=== PATIENT | female | born 1945 | race Caucasian/White ===

== ENCOUNTER 2023-04-29 15:49 | Emergency (ER) | payer OTHER, SELFPAY ==
[2023-04-29 15:54] VITALS: BP 198/102; PULSE 78; RESP 16; TEMP 36.4; O2SAT 98; BMI 28.3
--- NOTE | 2023-04-29 15:59 | CT_ITS ---
The [address] [address] Patient Name: KATRINA FISH MRN: [id number] date: 1945 Sex: F Assigned Patient Location: ER Current Patient Location: ER Accession/Order Number: [id number] Exam Date: 04/29/2023 16:46 Report Date: 04/29/2023 17:10 At the request of: CRISTIANO ROJAS Procedure: CT head/brain wo con EXAM: CT scan of the head and cervical spine without contrast. Dose reduction technique used: Automated exposure control and/or adjustment of the mA and/or kV according to patient size and/or use of iterative reconstruction technique. REASON FOR EXAM: fall COMPARISON: None FINDINGS: HEAD: No intracranial hemorrhage, mass effect, midline shift, fractures or evidence of acute ischemic infarct. No hydrocephalus. Mild small vessel gliosis. Paranasal sinuses and mastoid air cells are clear. Small right parietal scalp hematoma. C-SPINE: No fractures, dislocations or acute malalignment of the cervical spine. Cervical spine degenerative changes with multilevel bilateral mild and moderate neural foraminal stenoses. Multilevel spinal canal stenoses that are mild or moderate. Remainder unremarkable. CT/CT head/brain wo con IMPRESSION: No acute intracranial or cervical spine abnormalities. Electronically authenticated by: NIESHA ARZATE Date: 04/29/2023 17:10
--- NOTE | 2023-04-29 15:59 | CT_ITS ---
The [address] [address] Patient Name: KATRINA FISH MRN: [id number] date: 1945 Sex: F Assigned Patient Location: ER Current Patient Location: ER Accession/Order Number: [id number] Exam Date: 04/29/2023 16:46 Report Date: 04/29/2023 17:10 At the request of: CRISTIANO ROJAS Procedure: CT cervical spine wo con EXAM: CT scan of the head and cervical spine without contrast. Dose reduction technique used: Automated exposure control and/or adjustment of the mA and/or kV according to patient size and/or use of iterative reconstruction technique. REASON FOR EXAM: fall COMPARISON: None FINDINGS: HEAD: No intracranial hemorrhage, mass effect, midline shift, fractures or evidence of acute ischemic infarct. No hydrocephalus. Mild small vessel gliosis. Paranasal sinuses and mastoid air cells are clear. Small right parietal scalp hematoma. C-SPINE: No fractures, dislocations or acute malalignment of the cervical spine. Cervical spine degenerative changes with multilevel bilateral mild and moderate neural foraminal stenoses. Multilevel spinal canal stenoses that are mild or moderate. Remainder unremarkable. CT/CT cervical spine wo con IMPRESSION: No acute intracranial or cervical spine abnormalities. Electronically authenticated by: NIESHA ARZATE Date: 04/29/2023 17:10
--- NOTE | 2023-04-29 16:18 | ED.FALL1 ---
HPI - Fall General Chief Complaint: Fall Stated Complaint: FALL Time Seen by Provider: 04/29/23 15:59 Source: patient Mode of arrival: walk-in Limitations: no limitations History of Present Illness HPI Narrative: Patient is a 77-year-old female presents to the emergency department for evaluation of a head injury that occurred at home just prior to arrival. Patient states she tripped over her feet and fell backward. She does not know if she landed on her bottom first but states she did hit the back of her head. She is now having minimal pain in the neck and soreness to the back of the scalp. She did not sustain any lacerations. She denies loss of consciousness, visual changes, peripheral paresthesias. She is able to ambulate. No pain to the extremities, back.No nausea or vomiting. She is noted to be hypertensive at initial interview, her PCP is aware of fluctuations in her blood pressure and is currently trying to manage this for her. Related Data Previous Rx's Medication Instructions Recorded ondansetron 4 mg disintegrating 4 mg PO Q6H PRN nausea and 04/29/23 tablet vomiting #12 tabs Allergies Allergy/AdvReac Type Severity Reaction Status Date / Time No Known Drug Allergies Allergy Verified 04/29/23 15:57 Review of Systems ROS Constitutional Denies: fever or chills Eyes Denies: change in vision Ears, nose, mouth, and throat Denies: throat pain Cardiovascular Denies: chest pain Respiratory Denies: shortness of breath or cough Gastrointestinal Denies: nausea or vomiting Musculoskeletal Reports: neck pain; Denies: back pain, extremity pain, extremity swelling, joint pain or limited range of motion Neurological Reports: headache; Denies: numbness in extremities, weakness in extremities, lack of coordination, dizziness or vertigo Endocrine Denies: excessive urination Hematologic/Lymphatic Denies: easy bruising or easy bleeding PFSH PFSH Social History Smoking status: Heavy tobacco smoker Exam Narrative Exam Narrative: Gen.: Awake, alert, in no distress Head: Normocephalic, Mild swelling noted to the occiput with no abrasion or laceration ENT: Moist mucous membranes; No bony point tenderness of the midline cervical spine Respiratory: No respiratory distress, lungs clear bilaterally; No chest wall tenderness Cardio: Regular rate and rhythm Back: No bony tenderness of the T-spine or L-spine, pelvis is stable and hips are nontender Extremities: Moves extremities equally, no injuries noted; Left hand is nontender with a small area of ecchymosis to the dorsum of the hand Psych: Normal mood and affect Neuro: No focal neuro deficit Skin: Warm, dry, intact Constitutional Vital Signs, click to edit/add: Last Vital Signs Temp 97.6 F 04/29/23 15:54 Pulse 78 04/29/23 15:54 Resp 16 04/29/23 15:54 BP 198/102 H 04/29/23 15:54 Pulse Ox 98 04/29/23 15:54 O2 Del Method Room Air 04/29/23 15:54 Course Vital Signs Vital signs: Vital Signs Temperature 97.6 F 04/29/23 15:54 Pulse Rate 78 04/29/23 15:54 Respiratory Rate 16 04/29/23 15:54 Blood Pressure 198/102 H 04/29/23 15:54 Pulse Oximetry 98 04/29/23 15:54 Oxygen Delivery Method Room Air 04/29/23 15:54 Temperature 97.6 F 04/29/23 15:54 Pulse Rate 78 04/29/23 15:54 Respiratory Rate 16 04/29/23 15:54 Blood Pressure 198/102 H 04/29/23 15:54 Pulse Oximetry 98 04/29/23 15:54 Oxygen Delivery Method Room Air 04/29/23 15:54 MDM - Fall MDM Narrative Medical decision making narrative: CTs of the head, C-spine with no evidence of acute abnormalities. Patient with no other extremity injuries. She is discharged with close head injury instructions. Tylenol as needed. Follow-up with PCP and return to the ER if symptoms change or worsen. Medical Records Attestation: I reviewed the patient's medical records. Imaging Data CT scan - head: Attestation: I have reviewed the pertinent imaging results. Radiologist's impression: ITS Impressions Cervical Spine CT 04/29/23 15:59 IMPRESSION: No acute intracranial or cervical spine abnormalities. Electronically authenticated by: NIESHA ARZATE Date: 04/29/2023 17:[address] 04/29/23 15:59 IMPRESSION: No acute intracranial or cervical spine abnormalities. Electronically authenticated by: NIESHA ARZATE Date: 04/29/2023 17:10 Discharge Plan Discharge Chief Complaint: Fall Clinical Impression: Closed head injury, Fall Patient Disposition: Home, Self-Care Time of Disposition Decision: 17:22 Condition: Good Prescriptions / Home Meds: New ondansetron 4 mg tablet,disintegrating 4 mg PO Q6H PRN (Reason: nausea and vomiting) Qty: 12 0RF Instructions: Head Injury (ED), Fall Prevention (ED) Stand Alone Forms: Portal Instructions Referrals: ROCIO HUGGINS [Primary Care Provider] - 1 week
[2023-04-29] MEDS: ACETAMINOPHEN 325 MG TABLET 650 MG PO (16:25)
== END 2023-04-29 17:32 | disposition home or self-care (01) ==
PROVIDERS: Emergency Provider Emergency Medicine; PCP Internal Medicine
DX: S09.8XXA Other specified injuries of head, initial encounter (principal); W01.10XA Fall on same level from slipping, tripping and stumbling with subsequent striking against unspecified object, initial encounter; F17.210 Nicotine dependence, cigarettes, uncomplicated
CPT/HCPCS: 70450; 72125; 99284

== ENCOUNTER 2024-05-24 10:38 | Outpatient (OUT) | payer OTHER, SELFPAY ==
--- OUTSIDE RECORDS SUMMARY | 2024-05-24 10:49 | XMS_ITS | CCD ---
Author Organization [facility] [employer] Care Team Providers Care Skiff Operator Name Role Phone Trenteugenia Adam Unavailable Luh Valery Unavailable Chasity Gilliland Unavailable ALDEN, DR BORDEN Primary Care Unavailable ROSMERY LOPEZ Admitting Unavailable ROSMERY LOPEZ Attending Unavailable ROSMERY LOPEZ Consulting Unavailable ALDEN, DR BORDEN Admitting Unavailable VALONE, DR BORDEN Attending Unavailable VALONE, DR BORDEN Primary Care Unavailable VALONE, DR BORDEN Consulting Unavailable West, DR Agudelo Consulting Unavailable VALONE, DR BORDEN Primary Care Unavailable LALITHA PHILLIPS Admitting Unavailable LALITHA PHILLIPS Attending Unavailable LALITHA PHILLIPS Consulting Unavailable JOSSY SYLVESTER Attending Unavailable DINO ABERNATHY Primary Care Unavailable Dino Abernathy MD Unavailable Dino Abernathy MD Primary Care Provider Dino Abernathy MD Primary Care Provider NOE JASSO Attending Unavailable NOE JASSO Attending Unavailable DINO ABERNATHY Referring Unavailable DINO ABERNATHY Attending Unavailable ALMA GARNER Attending Unavailable DINO ABERNATHY Attending Unavailable DINO ABERNATHY Attending Unavailable DINO ABERNATHY Attending Unavailable DINO ABERNATHY Attending Unavailable DINO ABERNATHY Attending Unavailable DINO ABERNATHY Attending Unavailable Allergies Allergy Classification Reported Allergen(s) Allergy Type Date of Onset Reaction(s) Facility (13 sources) cefdinir; Translations: [Omnicef] Drug Allergy 2 severe Hives [facility] Repository (20 sources) prednisoLONE; Translations: [PREDNISOLONE] Drug Allergy 3 flushing-high doses [facility] Repository (12 sources) Novocain Drug allergy [facility] Other (20 sources) cefdinir; Translations: [CEFDINIR] Drug Allergy 3 [facility] Repository (2 sources) Hmg-Coa Reductase Inhibitors (Statins); Translations: [ZOIWDWF-OMG-LJ A REDUCTASE INHIBITORS] Propensity to adverse reactions to drug (disorder) 3 [facility] Repository (20 sources) Procaine; Translations: [PROCAINE] Drug Allergy 3 [facility] Repository (20 sources) HMG-CoA reductase inhibitor Drug Allergy 3 [facility] Medications Current Medications Medication Drug Class(es) Dates Sig (Normalized) Sig (Original) amLODIPine 5 mg oral tablet (6 sources) Dihydropyridine Calcium Channel Nikki Start: 01-09-2024 take 1 tablet by mouth in the morning amLODIPine (Norvasc) 5 MG tablet Take 5 mg by mouth in the morning. 01/09/2024 Active calcium citrate 950 mg oral tablet (20 sources) take 1 tablet by mouth in the morning calcium citrate (Calcitrate) 950 (200 Ca) MG tablet Take 950 mg by mouth in the morning. Active Caltrate 600+D 600-400 MG-UNIT (12 sources) take 1 tablet by mouth once daily at mealtime Caltrate 600+D 600-400 MG-UNIT 1 tablet with food Orally Once a day Active donepezil hydrochloride 5 mg oral tablet (18 sources) Start: 03-26-2024 End: 06-24-2024 take 1 tablet by mouth at bedtime donepezil (Aricept) 10 MG tablet Indications: Mild cognitive impairment , Mild dementia without behavioral disturbance, psychotic disturbance, mood disturbance, or anxiety, unspecified dementia type (CMS/HCC) Take 1 tablet (10 mg) by mouth at bedtime 30 tablet 2 03/26/2024 05/13/2024 Discontinued Start: 01-02-2024 End: 01-22-2025 take 1 tablet by mouth in the morning donepezil (Aricept) 5 MG tablet Indications: Mild cognitive impairment , Mild dementia without behavioral disturbance, psychotic disturbance, mood disturbance, or anxiety, unspecified dementia type (CMS/HCC) Take 1 tablet (5 mg) by mouth in the morning and 1 tablet (5 mg) before bedtime. 60 tablet 2 05/13/2024 08/11/2024 Active hydroCHLOROthiazide 25 mg / olmesartan medoxomil 40 mg oral tablet (20 sources) Thiazide Diuretic, Angiotensin 2 Receptor Nikki Start: 04-28-2023 End: 04-27-2024 take 1 tablet by mouth in the morning olmesartan-hydroCHLOROthiazide (BENIcar HCT) 40-25 MG tablet Indications: Primary hypertension (CMS/HCC) Take 1 tablet by mouth in the morning. 100 tablet 3 08/28/2023 Active krill oil 1000 mg oral capsule (12 sources) Krill Oil 1000 M G Orally Active loratadine 10 mg oral tablet (20 sources) Start: 01-31-2023 End: 01-31-2024 take 1 tablet by mouth in the morning loratadine (Claritin) 10 MG tablet Indications: Non-seasonal allergic rhinitis, unspecified trigger Take 1 tablet (10 mg) by mouth in the morning. 90 tablet 3 01/31/2023 Active take 1 tablet by mouth once lisa y Loratadine 10 MG 1 tablet Orally Once a day Active montelukast 10 mg oral tablet (20 sources) Leukotriene Receptor Antagonist Start: 02-04-2023 End: 03-29-2024 take 1 tablet by mouth at bedtime montelukast (Singulair) 10 MG tablet Indications: Non-seasonal allergic rhinitis, unspecified trigger TAKE 1 TABLET BY MOUTH AT BEDTIME 100 tablet 3 03/29/2024 Active multivitamin (Theragran) tablet (20 sources) take 1 tablet by mouth in the morning multivitamin (Theragran) tablet Take 1 tablet by mouth in the morning. Active take 1 tablet by mouth in the mo rning multivitamin (Theragran) tablet Take 1 tablet by mouth in the morning. 0 Active One Daily For Women (12 sources) One Daily For Wo men Orally Active rivaroxaban 15 mg oral tablet (8 sources) Factor Xa Inhibitor take 1 tablet by kirsty th every twenty-four hours Xarelto 15 MG 1 tablet with food Orally Once a day Active Xarelto Active rosuvastatin calcium 10 mg oral tablet (20 sources) HMG-CoA Reductase Inhibitor Start: 02-04-2023 End: 03-29-2024 take 1 tablet by mouth at bedtime rosuvastatin (Crestor) 10 MG tablet Indications: Pure hypercholesterolemia (CMS/HCC) TAKE 1 TABLET BY MOUTH AT BEDTIME 100 tablet 3 03/29/2024 Active therapeutic multivitamin (THERAGRAN) tablet (1 source) take 1 tablet by mouth in the morning therapeutic multivitamin (THERAGRAN) tablet Take 1 tablet by mouth in the morning. 0 Active thiamine 100 mg oral tablet (8 sources) Start: 03-26-2024 End: 08-11-2024 take 1 tablet by mouth once daily thiamine (Vitamin B-1) 100 MG tablet Indications: Mild cognitive impairment , Mild dementia without behavioral disturbance, psychotic disturbance, mood disturbance, or anxiety, unspecified dementia type (CMS/HCC) Take 1 tablet (100 mg) by mouth Daily 30 tablet 2 05/13/2024 08/11/2024 Active 24 hr verapamil hydrochloride 360 mg extended release oral capsule (19 sources) Calcium Channel Nikki take 2 capsules by mouth every twenty-four hours Verelan PM 200 MG 2 capsule Orally Once a day Not-Taking take 1 capsule by mouth once cristina ly Verapamil HCl 360 MG 1 capsule Orally Once a day Active take 2 capsules by m outh every twenty-four hours Completed/Discontinued Medications Medication Drug Class(es) Dates Sig (Normalized) Sig (Original) Aspir-81 81 MG (12 sources) take 1 tablet by kirsty th every other day Aspir-81 81 MG 1 tablet Orally Every other day Not-Taking take 1 tablet by mouth every oth er day Aspir-81 81 MG 1 tablet Orally Every other day Active diazePAM 5 mg oral tablet (20 sources) Benzodiazepine Start: 12-28-2020 take 1 tablet by mouth every hour, then take 2 tablets by mouth once daily Valium 5 MG 1 tablet 1 HOUR APPT BRING 2 TO OFFICE Orally Once a day Dec, Not-Taking hydrocortisone 10 mg/ml / neomycin 3.5 mg/ml / polymyxin b [id number] unt/ml otic suspension (8 sources) Aminoglycoside Antibacterial, Polymyxin-class Antibacterial, Corticosteroid Neomycin-Polymyxi n-HC [id number] 3 drops left ear Three times a day for 7 days Not-Taking olmesartan medoxomil 40 mg oral tablet (4 sources) Angiotensin 2 Receptor Nikki Start: 01-31-2023 End: 01-31-2024 take 1 tablet by mouth in the morning olmesartan (BENIcar) 40 MG tablet Indications: Primary hypertension (CMS/HCC) Take 1 tablet (40 mg) by mouth in the morning. 90 tablet 3 01/31/2023 04/28/2023 Discontinued (Dose adjustment) pravastatin sodium 20 mg oral tablet (12 sources) HMG-CoA Reductase Inhibitor take 1 tablet by mouth every twenty-four hours Pravastatin Sodium 20 MG 1 tablet Orally Once a day Not-Taking raNITIdine 300 mg oral tablet (12 sources) Histamine-2 Receptor Antagonist take 1 capsule by mouth once daily at bedtime Ranitidine HCl 300 MG 1 capsule at bedtime Orally Once a day Not-Taking Problems Active Problems Problem Classification Problem Date Documented Date Episodic/Chronic Administrative/social admission (2 sources) Patient encounter status; Translations: [Other specified counseling] 12-10-2023 Episodic Blindness and vision defects (5 sources) Visual disturbance; Translations: [Unspecified visual disturbance] Onset: 04-14-2024 04-14-2024 Episodic Cardiac dysrhythmias (5 sources) Palpitations; Translations: [Palpitations] Onset: 04-14-2024 04-14-2024 Episodic Chronic obstructive pulmonary disease and bronchiectasis (20 sources) Panacinar emphysema; 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] Onset: 12-18-2022 12-18-2022 Chronic Conditions associated with dizziness or vertigo (5 sources) Vertigo; Translations: [Dizziness and giddiness] Onset: 04-14-2024 04-14-2024 Episodic Delirium, dementia, and amnestic and other cognitive disorders (17 sources) Dementia; Translations: [Mild dementia without behavioral disturbance, psychotic disturbance, mood disturbance, or anxiety, unspecified dementia type (CMS/HCC)] Onset: 12-26-2023 12-26-2023 Chronic Disorders of lipid metabolism (20 sources) Pure hypercholesterolemia; Translations: [Pure hypercholesterolemia, unspecified] Onset: 01-31-2023 01-31-2023 Chronic Essential hypertension (20 sources) Essential hypertension; Translations: [Essential (primary) hypertension] Onset: 12-18-2022 12-18-2022 Chronic Immunizations and screening for infectious disease (6 sources) Contact with and (suspected) exposure to other viral communicable diseases; Translations: [Needs influenza immunization] Onset: 11-12-2021 Resolved: 11-19-2021 Episodic Other diseases of kidney and ureters (4 sources) Abnormal renal function; Translations: [Disorder of kidney and ureter, unspecified] 01-02-2024 Episodic Other diseases of veins and lymphatics (12 sources) Peripheral venous insufficiency; Translations: [Venous insufficiency (chronic) (peripheral)] Episodic Other hereditary and degenerative nervous system conditions (19 sources) Impaired cognition; Translations: [Mild cognitive impairment, so stated] Onset: 12-26-2023 12-26-2023 Chronic Other nervous system disorders (4 sources) Impaired cognition 01-02-2024 Episodic Other skin disorders (1 source) Epidermal cyst; Translations: [Epidermal cyst] Onset: 04-09-2023 Episodic Other upper respiratory disease (20 sources) Allergic rhinitis; Translations: [Other allergic rhinitis] Onset: 01-31-2023 01-31-2023 Chronic Peripheral and visceral atherosclerosis (19 sources) Atherosclerosis of aorta; Translations: [Atherosclerosis of aorta] Onset: 05-12-2023 05-12-2023 Chronic Residual codes; unclassified (5 sources) Transient alteration of awareness; Translations: [Transient alteration of awareness] Onset: 04-14-2024 04-14-2024 Episodic Substance-related disorders (20 sources) Smoker; Translations: [Nicotine dependence, unspecified, uncomplicated] Onset: 04-20-2021 01-31-2023 Chronic Unclassified (1 source) Cyst Onset: 04-09-2023 Varicose veins of lower extremity (20 sources) Pain co-occurrent and due to varicose veins of bilateral legs; Translations: [Varicose veins of bilateral lower extremities with pain] Onset: 04-10-2021 Resolved: 05-15-2021 Episodic Past or Other Problems Problem Classification Problem Date Documented Da te Episodic/Chronic Abdominal pain (3 sources) Unspecified abdominal pain; Translations: [UNSPECIFIED ABDOMINAL PAIN] Onset: 04-20-2021 Episodic Genitourinary symptoms and ill-defined conditions (5 sources) Personal history of urinary (tract) infections; Translations: [Hematuria, unspecified] Onset: 04-18-2021 Episodic Other aftercare (1 source) 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; Translations: [OTH SNF CURRENT DRUG THERAPY] Onset: 04-23-2021 Episodic Other aftercare (1 source) centrifugal separator (current) use of anticoagulants; Translations: [SUPERVISOR CIGAR PROCESSING CURRNT USE ANTICOAGULANTS] Onset: 04-23-2021 Episodic Other ear and sense organ disorders (1 source) Unspecified acute noninfective otitis externa, left ear Onset: 04-30-2021 Resolved: 04-30-2021 Episodic Other gastrointestinal disorders (1 source) Constipation, unspecified; Translations: [CONSTIPATION UNSPECIFIED] Onset: 04-23-2021 Episodic Other skin disorders (1 source) Epidermoid cyst; Translations: [Epidermal cyst] 04-09-2023 Episodic Residual codes; unclassified (1 source) Acquired absence of both cervix and uterus; Translations: [ACQUIRED ABSENCE BOTH CERVIX AND UTERUS] Onset: 04-20-2021 Episodic Urinary tract infections (1 source) Urinary tract infection, site not specified; Translations: [UTI SITE NOT SPECIFIED] Onset: 04-20-2021 Episodic Viral infection (1 source) COVID-19 Onset: 11-19-2021 Resolved: 11-19-2021 Results Test Name Value Interpretation Reference Range Facility BASIC METABOLIC PANELon 10 Calcium [Mass/Vol] 10.0 mg/dL Normal 8.6-10.4 [facility] Comment on above: Performed By: #### 1 0165 #### [facility] [place] [address] Bottle Washer: Pierce Patterson MD Chloride [Moles/Vol] 106 mmol/L Normal 98-110 [facility] Comment on above: Performed By: #### 1 0165 #### [facility] [place] [address] Bottle Washer: Pierce Patterson MD CO2 [Moles/Vol] 29 mmol/L Normal 20-32 [facility] Comment on above: Performed By: #### 1 0165 #### [facility] [place] [address] Bottle Washer: Pierce Patterson MD Creatinine [Mass/Vol] 1.17 mg/dL High 0.60-1.00 [facility] Comment on above: Performed By: #### 1 0165 #### [facility] [place] [address] Bottle Washer: Pierce Patterson MD GFR/1.73 sq M.predicted among non-blacks MDRD (S/P/Bld) [Vol rate/Area] 48 mL/min/{1.73_m2} Low > OR = 60 [facility] Comment on above: Performed By: #### 1 0165 #### [facility] [place] [address] Bottle Washer: Pierce Patterson MD Glucose [Mass/Vol] 98 mg/dL Normal 65-99 [facility] Comment on above: Result Comment: Fasting reference interval Performed By: #### 1 0165 #### [facility] [place] [address] Bottle Washer: Pierce Patterson MD Potassium [Moles/Vol] 3.9 mmol/L Normal 3.5-5.3 [facility] Comment on above: Performed By: #### 1 0165 #### [facility] [place] [address] Bottle Washer: Pierce Patterson MD Sodium [Moles/Vol] 143 mmol/L Normal 135-146 [facility] Comment on above: Performed By: #### 1 0165 #### [facility] [place] [address] Bottle Washer: Pierce Patterson MD Urea nitrogen [Mass/Vol] 11 mg/dL Normal 7-25 [facility] Comment on above: Performed By: #### 1 0165 #### [facility] [place] [address] Bottle Washer: Pierce Patterson MD Urea nitrogen/Creatinin e [Mass ratio] 9 mg/mg Normal 6-22 [facility] Comment on above: Performed By: #### 1 0165 #### [facility] [place] [address] Bottle Washer: Pierce Patterson MD MG MAMM SCREEN 3D NAE CADon 03-14-2022 MG MAMM SCREEN 3D NAE CAD Patient: STEPHANIE FISH Exam Date: 03/14/2022 : 1945 Gender:F Ordering : DR MICHI RUANO D.O. Admission #: [id number] Family : Order #: [id number] CLICK HERE TO VIEW EXAM RADIOLOGY REPORT PROCEDURE: MAMMOGRAM SCREENING 3D BILATERAL CAD COMPARISON: MG MAMM SCREEN NAE W CAD, 03/07/2020. MG MAMM SCREEN 3D NAE CAD, 03/13/2021. INDICATIONS: Screening mammography Calculator Name NCI Breast Cancer Risk Assessment Tool 5 Year Breast Cancer Risk 1.60% Lifetime Breast Cancer Risk 3.20% Personal Breast Cancer No Personal Ovarian Cancer No Treatments None Family Cancers Mother with colon cancer at age 35. LOCATION: [facility] BREAST COMPOSITION: Heterogeneously dense,which may obscure small masses. FINDINGS: DIAGNOSTIC CATEGORY 1--NEGATIVE. NO CHANGE FROM COMPARISON ASSESSMENT. Scattered benign-appearing calcifications are present. Scattered benign-appearing lymph nodes are present. RIGHT BREAST: No significant suspicious finding. LEFT BREAST: No significant suspicious finding. RECOMMENDATIONS: ROUTINE MAMMOGRAM AND CLINICAL EVALUATION IN 12 MONTHS. PLEASE NOTE: A NORMAL MAMMOGRAM DOES NOT EXCLUDE THE POSSIBILITY OF BREAST CANCER. A CLINICALLY SUSPICIOUS PALPABLE LUMP SHOULD BE BIOPSIED. Dictated by: Magnus Brasher MD on 03/14/2022 at 11:52 Approved by: Magnus Brasher MD on 03/14/2022 at 11:53 Normal [facility] COVID Quick Testingon 2021 Result Positive [facility] Other SARS-CoV-2 (COVID-19) RNA NA A+probe Ql (Resp)on 11-12-2021 SARS-CoV-2 (COVID-19) RNA LEE+probe Ql (Unsp spec) Negative [facility] Other US venous duplex LE LTon US venous duplex LE LT [facility] [place] [address] Ultrasound Report Signed Patient: Stephanie Fish MR#: [id number] 63 : 1945 Acct:[id number] Age/Sex: 75 / F ADM Date: 05/15/21 Loc: Room: Type: [facility] Attending Dr: Adam Blair MD Ordering Provider: Adam Blair MD Date of Service: 05/15/21 US/US venous duplex LE LT: [id number] Copies to: Adam Blair MD Left lower extremity venous duplex examination Indication for study: Chronic venous insufficiency with painful varicose veins status post venaseal closure left greater saphenous vein PROCEDURE: Color-flow duplex scanning is used to interrogate the venous system of the left lower extremity. It is noted that the greater saphenous vein is successfully closed. The saphenofemoral junction is patent at this time 2 cm from the common femoral vein. There is no evidence of deep vein thrombosis. The right common femoral vein, left common femoral vein, left femoral vein, and left popliteal vein all show good compressibility, color-flow, and augmentation. The calf veins are compressible. US/US venous duplex LE LT IMPRESSION: Successful closure of the left greater saphenous vein. No evidence for deep vein thrombosis. Impression dictated by: Adam Blair M.D.05/15/2021 3:18 PM Dictation Location: [place] [address] Tech: Radha Alessandra Transcribed By: CORETTA 05/15/21 1518 Dictated By: Adam Blair MD 05/15/21 1516 Signed By: 05/15/21 1518 [facility] CULTURE URINEon 04-20-2021 CULTURE URINE Isolate 1 Escherichia coli >100,000 cfu/mL of ORGANISM 1 Escherichia coli ANTIBIOTIC M.I.C RX STATUS Ampicillin <=2 S F Ampicillin/Sulbactam <=2 S F Piperacillin/Tazobact am <=4 S F Cefazolin <=4 S F Ceftazidime <=1 S F Ceftriaxone <=1 S F Ertapenem <=0.5 S F Imipenem <=0.25 S F Amikacin <=2 S F Gentamicin <=1 S F Tobramycin <=1 S F Ciprofloxacin <=0.25 S F Levofloxacin <=0.12 S F Nitrofurantoin <=16 S F Trimethoprim/Sulfamet hoxazole <=20 S F Normal [facility] Comment on above: Performed By: #### U RCX #### [facility] [address] [place] [address] Dr. Lulu FITCH URINE PROFILEon 2 Bilirubin Ql (U) Negative Normal NEGATIVE [facility] Comment on above: Performed By: #### E LIZZIER, UMICRO #### [facility] [address] [place] [address] Dr. Lulu Curran Clarity (U) CLEAR Normal CLEAR [facility] Comment on above: Performed By: #### E JAMI, UMICRO #### [facility] [address] [place] [address] [address] Lulu Curran Color (U) LT. YELLOW Normal YELLOW [facility] Comment on above: Performed By: #### E LIZZIER, UMICRO #### [facility] [address] [place] [address] Dr. Lulu PENALOZA A micrscopic examination will be performed if indicated. Normal [facility] Comment on above: Performed By: #### E JAMI, UMICRO #### [facility] [address] [place] [address] Dr. Lulu Curran Glucose Ql (U) Negative Normal NEGATIVE [facility] Comment on above: Performed By: #### Rajani FARRELL UMICRO #### [facility] [address] [place] [address] Dr. Lulu Curran Hemoglobin Ql (U) LARGE Abnormal NEGATIVE [facility] Comment on above: Performed By: #### Rajani FARRELL, UMICRO #### [facility] [address] [place] [address] Dr. Lulu Curran Ketones Ql (U) Negative Normal NEGATIVE [facility] Comment on above: Performed By: #### Rajani FARRELL UMICRO #### [facility] [address] [place] [address] Dr. Lulu Curran LEUKOCYTES LARGE Abnormal NEGATIVE [facility] Comment on above: Performed By: #### Rajani FARRELL UMICRO #### [facility] [address] [place] [address] Dr. Lulu Curran Nitrite Ql (U) Negative Normal NEGATIVE [facility] Comment on above: Performed By: #### Rajani FARRELL UMICRO #### [facility] [address] [place] [address] Dr. Lulu Curran pH (U) 6.5 [pH] Normal 5-9 [facility] Comment on above: Performed By: #### JOSELIN HAMMERRO #### [facility] [address] [place] [address] Dr. Lulu Curran SPEC GRAVITY <=1.005 Abnormal 1.005-<=1.025 [facility] Comment on above: Performed By: #### JOSELIN HAMMERRO #### [facility] [address] [place] [address] Dr. Lulu Curran UA PROTEIN TRACE Normal NEGATIVE/ TRACE [facility] Comment on above: Performed By: #### JOSELIN HAMMERRO #### [facility] [address] [place] [address] Dr. Lulu Curran UR MICRO IND INDICATED Normal [facility] Comment on above: Performed By: #### IVETT HAMMER #### [facility] [address] [place] [address] Dr. Lulu Curran Urobilinogen Qn (U) 0.2 {Mitchell'U}/dL Normal 0.2 - 1.0 [facility] Comment on above: Performed By: #### JOSELIN HAMMERRO #### [facility] [address] [place] [address] Dr. Lulu Curran URINE MICROSCOPIC ONLYon BACTERIA SMALL Abnormal NONE SEEN [facility] Comment on above: Performed By: #### JOSELIN HAMMERRO #### [facility] [address] [place] [address] Dr. Lulu Curran Bacteria identified Cx Nom (U) INDICATED Normal [facility] Comment on above: Performed By: #### JOSELIN HAMMERRO #### [facility] [address] [place] [address] Dr. Lulu Curran CAST NONE SEEN Normal NONE SEEN [facility] Comment on above: Performed By: #### JOSELIN HAMMERRO #### [facility] [address] [place] [address] Dr. Lulu Curran Crystals LM Nom (Urine sed) NONE SEEN Normal NONE SEEN [facility] Comment on above: Performed By: #### E RUR, UMICRO #### [facility] [address] [place] [address] [address] Lulu Curran Epithelial cells LM Ql (Urine sed) NONE SEEN Normal NONE SEEN /RARE [facility] Comment on above: Performed By: #### E RUR, UMICRO #### [facility] [address] [place] [address] [address] Lulu Curran MUCOUS NONE SEEN Normal NONE SEEN [facility] Comment on above: Performed By: #### E RUR, UMICRO #### [facility] [address] [place] [address] [address] Lulu Curran RBC 20-50 Abnormal 0-2 [facility] Comment on above: Performed By: #### E RUR, UMICRO #### [facility] [address] [place] [address] [address] Lulu Curran WBC 10-20 Abnormal NONE SEEN [facility] Comment on above: Performed By: #### E RUR, UMICRO #### [facility] [facility] [address] [address] [address] Lulu Curran US venous duplex [facility] US venous duplex [facility] [place] [address] Ultrasound Report Signed Patient: Stephanie Fish MR#: [id number] 63 : 1945 Acct:[id number] Age/Sex: 75 / F ADM Date: 04/10/21 Loc: [facility] Room: Type: [facility] Attending Dr: Adam Bliar MD Ordering Provider: Adam Blair MD Date of Service: 04/10/21 US/US venous duplex [facility]: I83.812, S/P VENASEAL Copies to: Adam Blair MD LEFT LOWER EXTREMITY VENOUS DUPLEX INDICATION: Venous insufficiency status post venous closure left greater saphenous vein Unilateral left lower extremity venous duplex Doppler study was obtained utilizing B-mode, color- flow and spectral Doppler. FINDINGS: The left common femoral, femoral, and popliteal veins showed adequate compressibility, color-flow and augmentation. The left posterior tibial and peroneal veins were compressible. There is been successful closure of the left greater saphenous vein. Closure of the vein shows thrombus which comes up to the saphenofemoral junction right at the entry point into the common femoral vein. However, at this juncture there is no deep vein thrombosis. US/US venous duplex LE LT IMPRESSION: Successful closure of the left greater saphenous vein. This closure shows thrombus right up to the saphenofemoral junction and the level of the common femoral vein but not involving the common femoral vein. No evidence for deep vein thrombosis in the left leg Impression dictated by: Adam Blair M.D.04/10/2021 2:02 PM Dictation Location: [place] [address] Tech: Angelique Grimes Transcribed By: CORETTA 04/10/21 1402 Dictated By: Adam Blair MD 04/10/21 1400 Signed By: 04/10/21 1402 [facility] US venous duplex LT US venous duplex [facility] [address] Ultrasound Report Signed Patient: Stephanie Fish MR#: [id number] 63 : 1945 Acct:[id number] Age/Sex: 75 / F ADM Date: 10/17/20 Loc: [facility] Room: Type: [facility] Attending Dr: Adam Blair MD Ordering Provider: Adam Blair MD Date of Service: 10/17/20 US/US venous duplex LE LT: I83.812 Copies to: Adam Blair MD Left lower extremity full functional venous duplex examination Indication for study: Painful left leg varicose veins PROCEDURE: Color-flow duplex scanning is used to interrogate the venous anatomy the left lower extremity. There is no evidence for deep vein thrombosis. The left common femoral vein, femoral vein, and popliteal vein all show good compressibility, color-flow, and augmentation. There is severe venous valvular incompetence. There is greater than 5 seconds of reflux at the saphenofemoral junction emptying into the greater saphenous vein as well as into an anterior saphenous branch. This results in dilation of these vein is the anterior saphenous vein is 8 mm below the saphenofemoral junction. The first portion of the greater saphenous vein is relatively normal in size but then becomes dilated also at almost 9 mm after the reflux reenters in the mid thigh. The lesser saphenous vein is normal in size. 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 Multiple varicosities are noted in the calf. US/US venous duplex LE LT IMPRESSION: No evidence for deep vein thrombosis in the left lower extremity. There is severe venous valvular incompetence at the saphenofemoral junction. There is also some venous valvular incompetence in the deep system involving the femoral vein and popliteal vein. Impression dictated by: Adam Blair M.D.10/17/2020 2:45 PM Dictation Location: [place] [address] Tech: Sun Connell Transcribed By: CORETTA 10/17/20 1445 Dictated By: Adam Blair MD 10/17/20 1444 Signed By: 10/17/20 1445 [facility] Vital Signs Date Time Vital Sign Value Performing Clinician Facility 05-13-2024 10:55-0500 Body height 157.5 cm Noe Jasso MD Work Phone: [facility] 05-13-2024 10:55-0500 Body mass index (BMI) [Ratio] 26.89 kg/m2 Noe Jasso MD Work Phone: [facility] 05-13-2024 10:55-0500 Body weight 66.68 kg Noe Jasso MD Work Phone: [facility] 05-13-2024 10:55-0500 Diastolic blood pressure 80 mm[Hg] Noe Jasso MD Work Phone: [facility] 05-13-2024 10:55-0500 Systolic blood pressure 130 mm[Hg] Noe Jasso MD Work Phone: [facility] 03-26-2024 09:50-0500 Body height 157.5 cm Noe Jasso MD Work Phone: [facility] 03-26-2024 09:50-0500 Body mass index (BMI) [Ratio] 26.89 kg/m2 Noe Jasso MD Work Phone: [facility] 03-26-2024 09:50-0500 Body weight 66.68 kg Noe Jasso MD Work Phone: [facility] 03-26-2024 09:50-0500 Diastolic blood pressure 82 mm[Hg] Noe Jasso MD Work Phone: [facility] 03-26-2024 09:50-0500 Systolic blood pressure 130 mm[Hg] Noe Jasso MD Work Phone: [facility] 01-23-2024 10:48-0500 Body height 157.5 cm Dino Abernathy MD Work Phone: [facility] 01-23-2024 10:48-0500 Body mass index (BMI) [Ratio] 26.89 kg/m2 Dino Abernathy MD Work Phone: [facility] 01-23-2024 10:48-0500 Body weight 66.68 kg Dino Abernathy MD Work Phone: [facility] 01-23-2024 10:48-0500 Diastolic blood pressure 64 mm[Hg] Dino Abernathy MD Work Phone: [facility] 01-23-2024 10:48-0500 Heart rate 76 /min Dino Abernathy MD Work Phone: [facility] 01-23-2024 10:48-0500 SaO2% (BldA) [Mass fraction] 98 % Dino Abernathy MD Work Phone: [facility] 01-23-2024 10:48-0500 Systolic blood pressure 128 mm[Hg] Dino Abernathy MD Work Phone: [facility] 01-02-2024 11:43-0400 Body height 157.5 cm Dino Abernathy MD Work Phone: [facility] 01-02-2024 11:43-0400 Body mass index (BMI) [Ratio] 27.62 kg/m2 Dino Abernathy MD Work Phone: [facility] 01-02-2024 11:43-0400 Body weight 68.49 kg Dino Abernathy MD Work Phone: [facility] 01-02-2024 11:43-0400 Diastolic blood pressure 72 mm[Hg] Dino Abernathy MD Work Phone: [facility] 01-02-2024 11:43-0400 Heart rate 81 /min Dino Abernathy MD Work Phone: [facility] 01-02-2024 11:43-0400 SaO2% (BldA) [Mass fraction] 96 % Dino Abernathy MD Work Phone: [facility] 01-02-2024 11:43-0400 Systolic blood pressure 128 mm[Hg] Dino Abernathy MD Work Phone: [facility] 12-26-2023 09:34-0400 Body height 157.5 cm Dino Abernathy MD Work Phone: [facility] 12-26-2023 09:34-0400 Body mass index (BMI) [Ratio] 27.62 kg/m2 Dino Abernathy MD Work Phone: [facility] 12-26-2023 09:34-0400 Body weight 68.49 kg Dino Abernathy MD Work Phone: [facility] 12-26-2023 09:34-0400 Diastolic blood pressure 68 mm[Hg] Dino Abernathy MD Work Phone: [facility] 12-26-2023 09:34-0400 Heart rate 78 /min Dino Abernathy MD Work Phone: [facility] 12-26-2023 09:34-0400 SaO2% (BldA) [Mass fraction] 97 % Dino Abernathy MD Work Phone: [facility] 12-26-2023 09:34-0400 Systolic blood pressure 128 mm[Hg] Dino Abernathy MD Work Phone: [facility] 12-10-2023 10:03-0400 Body height 157.5 cm Dino Abernathy MD Work Phone: [facility] 12-10-2023 10:03-0400 Body mass index (BMI) [Ratio] 27.44 kg/m2 Dino Abernathy MD Work Phone: [facility] 12-10-2023 10:03-0400 Body weight 68.04 kg Dino Abernathy MD Work Phone: [facility] 12-10-2023 10:03-0400 Diastolic blood pressure 74 mm[Hg] Dino Abernathy MD Work Phone: [facility] 12-10-2023 10:03-0400 Heart rate 77 /min Dino Abernathy MD Work Phone: [facility] 12-10-2023 10:03-0400 SaO2% (BldA) [Mass fraction] 98 % Dino Abernathy MD Work Phone: [facility] 12-10-2023 10:03-0400 Systolic blood pressure 132 mm[Hg] Dino Abernathy MD Work Phone: [facility] 04-28-2023 14:02-0500 Body height 157.5 cm Dino Abernathy MD Work Phone: [facility] 04-28-2023 14:02-0500 Body mass index (BMI) [Ratio] 30.18 kg/m2 Dino Abernathy MD Work Phone: [facility] 04-28-2023 14:02-0500 Body weight 74.84 kg Dino Abernathy MD Work Phone: [facility] 04-28-2023 14:02-0500 Diastolic blood pressure 94 mm[Hg] Dino Abernathy MD Work Phone: [facility] 04-28-2023 14:02-0500 Heart rate 79 /min Dino Abernathy MD Work Phone: [facility] 04-28-2023 14:02-0500 SaO2% (BldA) [Mass fraction] 97 % Dino Abernathy MD Work Phone: [facility] 04-28-2023 14:02-0500 Systolic blood pressure 168 mm[Hg] Dino Abernathy MD Work Phone: [facility] 04-09-2023 10:10-0500 Body height 157.5 cm Jossy Sylvester DO [facility] 04-09-2023 10:10-0500 Body mass index (BMI) [Ratio] 30.47 kg/m2 Jossy Sylvester DO Work Phone: [facility] 04-09-2023 10:10-0500 Body weight 75.57 kg Jossy Sylvester DO Work Phone: [facility] 11-19-2021 12:25-0400 Body height 162.56 cm Valery Arvizu Other [facility] Other 11-19-2021 12:25-0400 Body mass index (BMI) [Ratio] 24.89 kg/m2 Valery Luh Other [facility] Other 11-19-2021 12:25-0400 Body temperature 97 [degF] Valery Luh Other [facility] Other 11-19-2021 12:25-0400 Body weight 65.77 kg Valery Luh Other [facility] Other 11-19-2021 12:25-0400 Respiratory rate 18 /min Valery Luh Other [facility] Other 11-19-2021 12:25-0400 SaO2% (BldA) [Mass fraction] 96 % Valery Arvizu Other [facility] Other 11-12-2021 12:10-0400 Body height 162.56 cm Valery Arvizu Other [facility] Other 11-12-2021 12:10-0400 Body mass index (BMI) [Ratio] 24.89 kg/m2 Valery Arvizu Other [facility] Other 11-12-2021 12:10-0400 Body temperature 98 [degF] Valery Arvizu Other [facility] Other 11-12-2021 12:10-0400 Body weight 65.77 kg Valery Arvizu Other [facility] Other 11-12-2021 12:10-0400 Respiratory rate 18 /min Valery Arvizu Other [facility] Other 11-12-2021 12:10-0400 SaO2% (BldA) [Mass fraction] 96 % Valery Arvizu Other [facility] Other 05-15-2021 12:45-0500 Body height 165.1 cm Adam Blair Other [facility] Other 05-15-2021 12:45-0500 Body mass index (BMI) [Ratio] 24.96 kg/m2 Adam Blair Other [facility] Other 05-15-2021 12:45-0500 Body temperature 97.7 [degF] Adam Blair Other [facility] Other 05-15-2021 12:45-0500 Body weight 68.04 kg Adam Blair Other [facility] Other 05-15-2021 12:45-0500 Diastolic blood pressure 64 mm[Hg] Adam Blair Other [facility] Other 05-15-2021 12:45-0500 SaO2% (BldA) [Mass fraction] 97 % Adam Blair Other [facility] Other 05-15-2021 12:45-0500 Systolic blood pressure 140 mm[Hg] Adam Blair Other [facility] Other 04-30-2021 17:25-0500 Body height 165.1 cm Valery Luh Other [facility] Other 04-30-2021 17:25-0500 Body mass index (BMI) [Ratio] 24.96 kg/m2 Valery Luh Other [facility] Other 04-30-2021 17:25-0500 Body temperature 97.1 [degF] Valery Luh Other [facility] Other 04-30-2021 17:25-0500 Body weight 68.04 kg Valery Luh Other [facility] Other 04-30-2021 17:25-0500 Diastolic blood pressure 72 mm[Hg] Valery Luh Other [facility] Other 04-30-2021 17:25-0500 Respiratory rate 18 /min Valery Luh Other [facility] Other 04-30-2021 17:25-0500 SaO2% (BldA) [Mass fraction] 99 % Valery Luh Other [facility] Other 04-30-2021 17:25-0500 Systolic blood pressure 147 mm[Hg] Valery Arvizu Other [facility] Other 04-10-2021 12:00-0500 Body height 165.1 cm Adam Blair Other [facility] Other 04-10-2021 12:00-0500 Body mass index (BMI) [Ratio] 24.96 kg/m2 Adam Abrahamrefernando Other [facility] Other 04-10-2021 12:00-0500 Body temperature 97.2 [degF] Adam Blair Other [facility] Other 04-10-2021 12:00-0500 Body weight 68.04 kg Adam Blair Other [facility] Other 04-10-2021 12:00-0500 Diastolic blood pressure 70 mm[Hg] Adam Blair Other [facility] Other 04-10-2021 12:00-0500 SaO2% (BldA) [Mass fraction] 98 % Adam Blair Other [facility] Other 04-10-2021 12:00-0500 Systolic blood pressure 98 mm[Hg] Adam Abrahamrer Other [facility] Other Encounters Encounter Date Encounter Type Care Provider Facility Start: 05-13-2024 End: 05-13-2024 Bamboo flowsheet Noe Jasso MD Work Phone: [facility] Start: 05-13-2024 End: 05-13-2024 Bamboo flowsheet Noe Jasso MD Work Phone: [facility] Start: 05-13-2024 End: 05-13-2024 Office outpatient visit 25 minutes Noe Jasso MD Work Phone: [facility] Comment on above: Mild cognitive impai rment (Primary Dx); Mild dementia without behavioral disturbance, psychotic disturbance, mood disturbance, or anxiety, unspecified dementia type (CMS/HCC) Start: 05-13-2024 End: 05-13-2024 ambulatory NOE JASSO Not Available Start: 04-09-2024 End: 04-09-2024 ambulatory NOE JASSO Not Available Start: 04-09-2024 End: 04-09-2024 Patient encounter procedure [facility] Business Planning Manager [facility] Comment on above: Mild dementia withou t behavioral disturbance, psychotic disturbance, mood disturbance, or anxiety, unspecified dementia type (CMS/HCC); Visual disturbance; Altered awareness, transient; Vertigo; Palpitations Start: 03-26-2024 End: 03-26-2024 Bamboo Crowd Castheet Noe Jasso MD Work Phone: [facility] Start: 03-26-2024 End: 03-26-2024 [employer] Crowd Castheet Noe Jasso MD Work Phone: [facility] Start: 03-26-2024 End: 03-26-2024 Office outpatient new 45 minutes Noe Jasso MD Work Phone: [facility] Comment on above: Mild cognitive impai rment (Primary Dx); Mild dementia without behavioral disturbance, psychotic disturbance, mood disturbance, or anxiety, unspecified dementia type (CMS/HCC) Start: 03-26-2024 End: 03-26-2024 ambulatory NOE JASSO Not Available Start: 01-23-2024 End: 01-23-2024 Bamboo flowsheet Dino Abernathy MD Work Phone: [facility] Start: 01-23-2024 End: 01-23-2024 Bamboo flowsheet Dino Abernathy MD Work Phone: [facility] Start: 01-23-2024 End: 01-23-2024 Office outpatient visit 25 minutes Dino Abernathy MD Work Phone: [facility] Comment on above: Primary hypertension (CMS/HCC) (Primary Dx); Mild dementia without behavioral disturbance, psychotic disturbance, mood disturbance, or anxiety, unspecified dementia type (CMS/HCC); Abnormal renal function finding Start: 01-23-2024 End: 01-23-2024 ambulatory DINO ABERNATHY Not Available Start: 01-02-2024 End: 01-02-2024 Bamboo flowsheet Dino Abernathy MD Work Phone: [facility] Start: 01-02-2024 End: 01-02-2024 Bamboo flowsheet Dino Abernathy MD Work Phone: [facility] Start: 01-02-2024 End: 01-02-2024 Office outpatient visit 25 minutes Dino Abernathy MD Work Phone: [facility] Comment on above: Mild dementia withou t behavioral disturbance, psychotic disturbance, mood disturbance, or anxiety, unspecified dementia type (CMS/HCC) (Primary Dx); Mild cognitive impairment; Abnormal renal function finding Start: 01-02-2024 End: 01-02-2024 ambulatory DINO ABERNATHY Not Available Start: 12-26-2023 End: 12-26-2023 Bamboo flowsheet Dino Abernathy MD Work Phone: [facility] Start: 12-26-2023 End: 12-26-2023 Bamboo flowsheet Dino Abernathy MD Work Phone: [facility] Start: 12-26-2023 End: 12-26-2023 ambulatory DINO ABERNATHY Not Available Start: 12-26-2023 End: 12-26-2023 Office outpatient visit 15 minutes Dino Abernathy MD Work Phone: [facility] Comment on above: Mild dementia withou t behavioral disturbance, psychotic disturbance, mood disturbance, or anxiety, unspecified dementia type (CMS/HCC) (Primary Dx); Mild cognitive impairment Start: 12-10-2023 End: 12-10-2023 Bamboo flowsheet Dino Abernathy MD Work Phone: [facility] Start: 12-10-2023 End: 12-10-2023 Bamboo flowsheet Dino Abernathy MD Work Phone: [facility] Start: 12-10-2023 End: 12-10-2023 ambulatory DINO ABERNATHY Not Available Start: 12-10-2023 End: 12-10-2023 Assay of hemosiderin, quant Dino Abernathy MD Work Phone: [facility] Work Phone: Start: 12-10-2023 End: 12-10-2023 Patient encounter procedure Dino Abernathy MD Work Phone: [facility] Comment on above: Routine general medi zoila examination at health care facility (Primary Dx); ACP (advance care planning); Flu vaccine need; Panlobular emphysema (CMS/HCC); Primary hypertension (CMS/HCC); Pure hypercholesterolemia (CMS/HCC) Start: 09-11-2023 End: 09-11-2023 ambulatory DINO ABERNATHY Not Available Start: 08-26-2023 End: 08-26-2023 ambulatory ALMA GARNER Not Available Start: 07-30-2023 End: 07-30-2023 ambulatory DINO ABERNATHY Not Available Start: 06-09-2023 End: 06-09-2023 ambulatory DINO ABERNATHY Not Available Start: 04-28-2023 End: 04-28-2023 Office outpatient visit 15 minutes Dino Abernathy MD Work Phone: [facility] Comment on above: Primary hypertension (CMS/HCC) (Primary Dx) Start: 04-28-2023 Bamboo flowsheet Dino shaw MD Work Phone: [facility] Start: 04-28-2023 Bamboo flowsjanelle Banda Work Phone: [facility] Start: 04-09-2023 End: 04-09-2023 ambulatory [place] Rajani [facility] Start: 04-09-2023 End: 04-09-2023 Office outpatient new 20 minutes Jossy Sylvester DO [facility] Comment on above: Inclusion cyst (Prim mariola Dx) Start: 03-14-2022 End: 03-15-[address] MICHI RUANO Facility: Start: 11-19-2021 End: 11-19-2021 ambulatory Valery Arvizu Other [facility] Other Start: 11-19-2021 Office outpatient vi sit 15 minutes Valery Luh [facility] [place] Start: 11-12-2021 End: 11-12-2021 ambulatory Valery Luh Other [facility] Other Start: 11-12-2021 Office outpatient vi sit 15 minutes Valery Luh [facility] [place] Start: 08-10-2021 (Sclerother) Sclerotherapy Chasity jc [facility] Start: 08-10-2021 End: 08-10-2021 ambulatory Chasity Gilliland Other [facility] Other Start: 08-09-2021 End: 08-09-2021 ambulatory Adam Blair Other [facility] Other Start: 08-09-2021 Telephone encounter Adam Blair [facility] Start: 05-15-2021 End: 05-15-2021 ambulatory Adam Blair Other [facility] Other Start: 05-15-2021 Office outpatient vi sit 25 minutes Adam Blair [facility] Start: 05-15-2021 Telephone encounter Adam Blair [facility] Start: 04-30-2021 End: 04-30-2021 ambulatory Valery Arvizu Other [facility] Other Start: 04-30-2021 Office outpatient vi sit 15 minutes Valery Luh [facility] [place] Start: 04-20-2021 End: 04-20-[address] MICHI RUANO Facility:[facility] Start: 04-18-2021 End: 04-18-[address] MICHI RUANO Facility:[facility] Start: 04-13-2021 End: 04-13-2021 ambulatory Adam Blair Other [facility] Other Start: 04-13-2021 Telephone encounter Adam Blair [facility] Vascular Surgery Start: 04-10-2021 End: 04-10-2021 ambulatory Adam Blair Other [facility] Other Start: 04-10-2021 Office outpatient vi sit 25 minutes Adam Blair [facility] Vascular Surgery Start: 04-06-2021 (EVLT) EVLT saphenou s vein ablation Adam Blair [facility] V[facility] Surgery Start: 04-06-2021 End: 04-06-2021 ambulatory Adamelizabeth Abrahamjuliano Other [facility] Other Start: 04-04-2021 End: 04-04-2021 ambulatory Adam Abrahamjuliano Other [facility] Other Start: 04-04-2021 Telephone encounter Adam Blair [facility] Vascular Surgery Start: 01-12-2021 (EVLT) EVLT saphenou s vein ablation Adamelizabeth Abrahamjuliano [facility] Vascular Surgery Start: 01-12-2021 End: 01-12-2021 ambulatory Adamelizabeth Abrahamjuliano Other [facility] Other Plan of Treatment Date Care Activity Detail Author Start: 12-09-2024 Medicare Annual Well ness (AWV) Medicare Annual Wellness (AWV) [facility] Start: 09-08-2024 End: 09-08-2024 Patient encounter procedure 09/08/2024 10:00 AM EDT Office Visit [facility] [address] [place] [address] Noe Jasso MD [address] [facility] [address] [id number] [facility] Start: 05-24-2024 End: 05-24-2024 Patient encounter procedure 05/24/2024 9:30 AM EDT Office Visit [facility] [address] [facility] [address] [place] [address] Dino Abernathy MD [address] [facility] [address] [place], [place] [id number] [facility] Start: 05-13-2024 End: 05-13-2024 Patient encounter procedure [facility] Comment on above: Arrived Start: 04-09-2024 Adult BMI Screening Adult BMI Screen ing [facility] Start: 04-09-2024 Tobacco Screening Tobacco Screening [facility] Start: 04-01-2024 End: 04-01-2024 Patient encounter procedure 04/01/2024 12:30 PM EST Office Visit [facility] [address] [address] [facility] Start: 03-26-2024 End: 03-26-2025 Brain Mapping Brain Mapping Neurology Routine Mild cognitive impairment Mild dementia without behavioral disturbance, psychotic disturbance, mood disturbance, or anxiety, unspecified dementia type ([facility]) Expected: 03/26/2024 (Approximate), Expires: 03/26/2025 [facility] Work Phone: Comment on above: Expected: 03/26/2024 (Approximate), Expires: 03/26/2025 Start: 03-26-2024 End: 03-26-2024 Patient encounter procedure [facility] Comment on above: Mild cognitive impai rment Start: 02-01-2024 Medicare Annual Well ness (AWV) Medicare Annual Wellness (AWV) [facility] Start: 01-23-2024 End: 01-23-2024 Patient encounter procedure [facility] Comment on above: Arrived Start: 01-08-2024 End: 01-01-2025 Basic metabolic 1998 panel - Serum or Plasma Basic metabolic panel Lab Routine Abnormal renal function finding Expected: 01/08/2024 (Approximate), Expires: 01/01/2025 [facility] Work Phone: Comment on above: Expected: 01/08/2024 (Approximate), Expires: 01/01/2025 Start: 01-02-2024 End: 01-02-2024 Patient encounter procedure 01/02/2024 11:45 AM EDT Office Visit [facility] [address] [facility] [address] [place] [id number] Dino Abernathy MD [address] [facility] [address] [place] [address] Arrived [facility] Comment on above: Arrived Start: 12-26-2023 End: 12-25-2024 Cobalamin (Vitamin B12) [Mass/volume] in Serum or Plasma Vitamin B12 Lab Routine Mild dementia without behavioral disturbance, psychotic disturbance, mood disturbance, or anxiety, unspecified dementia type (CMS/HCC) Expected: 12/26/2023 (Approximate), Expires: 12/25/2024 [facility] Comment on above: Expected: 12/26/2023 (Approximate), Expires: 12/25/2024 Start: 12-26-2023 End: 12-25-2024 Comprehensive metabolic 2000 panel - Serum or Plasma Comprehensive metabolic panel Lab Routine Mild dementia without behavioral disturbance, psychotic disturbance, mood disturbance, or anxiety, unspecified dementia type (CMS/HCC) Expected: 12/26/2023 (Approximate), Expires: 12/25/2024 [facility] Comment on above: Expected: 12/26/2023 (Approximate), Expires: 12/25/2024 Start: 12-26-2023 End: 12-25-2024 Reagin Ab [Presence] in Serum by RPR RPR Lab Routine Mild dementia without behavioral disturbance, psychotic disturbance, mood disturbance, or anxiety, unspecified dementia type (CMS/HCC) Expected: 12/26/2023 (Approximate), Expires: 12/25/2024 [facility] Comment on above: Expected: 12/26/2023 (Approximate), Expires: 12/25/2024 Start: 12-26-2023 End: 12-25-2024 TSH W/REFLEX TO FT4 TSH W/REFLEX TO FT4 Lab Routine Mild dementia without behavioral disturbance, psychotic disturbance, mood disturbance, or anxiety, unspecified dementia type (CMS/HCC) Expected: 12/26/2023 (Approximate), Expires: 12/25/2024 [facility] Comment on above: Expected: 12/26/2023 (Approximate), Expires: 12/25/2024 Start: 12-26-2023 End: 12-26-2023 Patient encounter procedure 12/26/2023 9:30 AM EDT Office Visit [facility] [address] [place] [address] Dino Abernathy MD [address] [place] [address] [facility] Start: 11-16-2023 Influenza vaccination Influenza Vacc ine (#1) [facility] Start: 09-11-2023 End: 09-11-2023 Patient encounter procedure 09/11/2023 10:00 AM EDT Office Visit [facility] [address] [place] [address] Dino Abernathy MD [address] [place] [address] [facility] Start: 05-12-2023 End: 05-12-2023 Patient encounter procedure 05/12/2023 9:00 AM EST Office Visit [facility] [address] [place] [address] Dino Abernathy MD [address] [place] [address] [facility] Start: 04-28-2023 End: 04-28-2023 Patient encounter procedure 04/28/2023 3:00 PM EST Office Visit [facility] [address] [place] [address] Dino Abernathy MD [address] [place] [address] Arrived [facility] Comment on above: Arrived Start: 11-15-2022 COVID-19 Vaccine ( season) COVID-19 Vaccine ( season) [facility] Start: 03-01-2019 Pneumococcal Vaccine : 65+ Years (2 - PPSV23 or PCV20) Pneumococcal Vaccine: 65+ Years (2 - PPSV23 or PCV20) [facility] Start: 03-01-2019 Pneumococcal Vaccine : 65+ Years (2 of 2 - PPSV23 or PCV20) Pneumococcal Vaccine: 65+ Years (2 of 2 - PPSV23 or PCV20) [facility] Start: 2010 Fall Risk Screening Fall Risk Screen ing [facility] Start: 1964 DTaP,Tdap and Td Vaccines (1 - Tdap) DTaP,Tdap and Td Vaccines (1 - Tdap) [facility] Start: 07-18-1963 Adult BMI Follow Up Plan Adult BMI Follow Up Plan [facility] Start: 1957 Depression Screening Depression Scre ening [facility] Start: 1945 Medicare Annual Well ness Visit Medicare Annual Wellness Visit [facility] Start: 1945 Tobacco Counseling Tobacco Counselin g [facility] CBC W Auto Different ial panel - Blood CBC and differential Lab Routine Mild dementia without behavioral disturbance, psychotic disturbance, mood disturbance, or anxiety, unspecified dementia type (CMS/HCC) Ordered: 12/26/2023 [facility] Work Phone: Comment on above: Ordered: 12/26/2023 Immunizations Immunization Date Immunization Notes Care Provider Fa cility 12-10-2023 Influenza, High-dose Seasonal, Quadrivalent, Preservative Free Dino Abernathy MD Work Phone: [facility] 01-31-2023 Influenza, High-dose Seasonal, Quadrivalent, Preservative Free Dino Abernathy MD Work Phone: [facility] 01-31-2023 influenza virus vaccine, unspecified formulation Dino Abernathy MD Work Phone: [facility] 02-27-2021 Pfizer Purple Cap SARS-CoV-2 Vaccination Dino Abernathy MD Work Phone: [facility] 06-13-2020 Pfizer Purple Cap SARS-CoV-2 Vaccination Dino Abernathy MD Work Phone: [facility] 05-22-2020 Pfizer Purple Cap SARS-CoV-2 Vaccination Dino Abernathy MD Work Phone: [facility] 01-20-2020 zoster vaccine recombinant Dino Abernathy MD Work Phone: [facility] 05-01-2019 zoster vaccine recombinant Dino Abernathy MD Work Phone: [facility] 01-04-2019 pneumococcal conjuga te vaccine, 13 valent Dino Abernathy MD Work Phone: [facility] 01-01-2017 influenza, injectabl e, quadrivalent, preservative free Dino Aberntahy MD Work Phone: [facility] 06-06-2015 influenza, seasonal, injectable [facility] Other [place] Other Payers Date Payer Category Payer Medicare (Managed Care) [facility] [id number] 2022 Unknown [id number] 2022 Medicare [id number] 1959 Unknown [id number] 1945 Unknown [id number] 2.16.840.1.256756.3.579. 2.593 1945 Unknown [id number] 2.16.840.1.046897.3.579. 2.593 1945 Unknown [id number] 2.16.840.1.696782.3.579. 2.593 1945 Unknown [id number] 2.16.840.1.432529.3.579. 2.1286 1945 Unknown [id number] 2.16.840.1.149559.3.579. 2.1259 1945 Unknown [id number] 2.16.840.1.974373.3.579. 2.1259 1945 Unknown [id number] 2.16.840.1.850910.3.579. 2.1259 1945 Unknown [id number] 2.16.840.1.339772.3.579. 2.1259 1945 Unknown [id number] 2.16.840.1.692515.3.579. 2.1259 1945 Unknown [id number] 2.16.840.1.951678.3.579. 2.1259 1945 Unknown [id number] 2.16.840.1.040064.3.579. 2.1259 1945 Unknown [id number] 2.16.840.1.641924.3.579. 2.125 1945 Unknown [id number] 2.16.840.1.727636.3.579. 2.1259 1945 Unknown [id number] 2.16.840.1.514108.3.579. 2.125 1945 Unknown [id number] 2.16.840.1.801743.3.579. 2.1259 Medicare [id number] Social History Date Type Detail Facility Sex Assigned At [facility] [employer] Other Start: 03-13-2023 End: 12-10-2023 Sex Assigned At [facility] [employer] Other Start: 01-31-2023 End: 08-26-2023 Tobacco smoking status NHIS Smokes tobacco daily [facility] History of tobacco use Cigarette Smoker P [facility] Start: 01-31-2023 End: 12-10-2023 Cigarettes smoked current (pack per day) - Reported 0.5 [facility] Start: 01-31-2023 End: 08-26-2023 Tobacco use and exposure Smokeless tobacco non-user [facility] Start: 03-13-2023 End: 05-13-2024 Alcohol intake Ex-drinker (finding) [facility] Start: 1945 Sex Assigned At Not on file P [facility] Start: 04-09-2023 Alcohol intake Lifetime non-d leidy (finding) [facility] Clinical Notes 04-10-2021 to 05-13-2024 Noe Jasso MD - 05/13/2024 10:40 AM Louie [facility] - 04/09/2024 12:00 PM Surya Jasso MD - 03/26/2024 9:40 AM Joseph Abernathy MD - 01/23/2024 11:00 AM EST Note Date & Type Note Facility 05-13-2024 History of Present illness Narrative Images from the original note were not included. CHIEF COMPLAINT REASON FOR VISIT: Follow up HPI: Stephanie Fish is a 78 y.o. female who presents for a follow up. Patient states she is here to go over brain mapping results today. She states she did not increase to the 10 mg of the donepezil due to side effects. States she was getting nightmares. She is just taking the 5 mg. She is not sure if she started the thiamine. She states she does get around good when driving. She states that she does everything independently. Denies any other concerns. CURRENT MEDICATIONS: ALLERGIES/DISCONTINUE MEDICATIONS Current Outpatient Medications Medication Instructions amLODIPine (NORVASC) 5 mg, Every morning calcium citrate (CALCITRATE) 950 mg, Daily donepezil (ARICEPT) 5 mg, Oral, 2 times daily loratadine (CLARITIN) 10 mg, Oral, Daily montelukast (SINGULAIR) 10 mg, Oral, Nightly multivitamin (Theragran) tablet 1 tablet, Daily olmesartan-hydroCHLOROthiazide (BENIcar HCT) 40-25 MG tablet 1 tablet, Oral, Every morning rosuvastatin (CRESTOR) 10 mg, Oral, Nightly thiamine (VITAMIN B-1) 100 mg, Oral, Daily Allergies Allergen Reactions Prednisolone Statins Cefdinir Procaine Caused heart to race Medications Discontinued During This Encounter Medication Reason donepezil (Aricept) 10 MG tablet thiamine (Vitamin B-1) 100 MG tablet Reorder PAST MEDICAL HISTORY: SURGICAL/SOCIAL/FAMILY HISTORY DEPRESSION SCREEN: Past Medical History: Diagnosis Date GERD (gastroesophageal reflux disease) Hyperlipemia (CMS/HCC) Hypertension (CMS/HCC) Past Surgical History: Procedure Laterality Date APPENDECTOMY COLONOSCOPY HYSTERECTOMY Social History Tobacco Use Smoking status: Every Day Current packs/day: 0.50 Average packs/day: 0.5 packs/day for 50.0 years (25.0 ttl pk-yrs) Types: Cigarettes Smokeless tobacco: Never Vaping Use Vaping status: Never Used Substance Use Topics Alcohol use: Not Currently Family History Problem Relation Name Age of Onset Heart disease Mother Depression: Not at risk (12/10/2023) PHQ-2 PHQ-2 Score: 0 REVIEW OF SYMPTOMS: Review of Systems Constitutional: Negative for chills, diaphoresis, fatigue and fever. HENT: Negative for ear pain, tinnitus and trouble swallowing. Eyes: Negative for photophobia and visual disturbance. Respiratory: Negative for cough and shortness of breath. Cardiovascular: Negative for palpitations and leg swelling. Gastrointestinal: Negative for abdominal pain and nausea. Genitourinary: Negative for difficulty urinating and urgency. Musculoskeletal: Negative for arthralgias, back pain, myalgias, neck pain and neck stiffness. Neurological: Negative for tremors, weakness, light-headedness and numbness. Psychiatric/Behavioral: Negative for agitation, confusion and suicidal ideas. OBJECTIVE: 05/13/2024 10:55 AM 03/26/2024 9:50 AM 01/23/2024 10:48 AM Vitals BMI 26.89 kg/m2 26.89 kg/m2 26.89 kg/m2 BSA (m2) 1.71 m2 1.71 m2 1.71 m2 Systolic 130 130 128 Diastolic 80 82 64 Heart Rate 76 SpO2 98 % Height (in) 5' 2 5' 2 5' 2 Weight (lb) 147 147 147 Visit Report Report Report Report EXAM: Neurological Exam Mental Status Awake, alert and oriented to person, place and time. Oriented to person, place and time. Recent and remote memory are intact. Speech is normal. Language is fluent with no aphasia. Attention and concentration are normal. Cranial Nerves CN II: Visual acuity is normal. Visual wynne full to confrontation. CN III, IV, : Extraocular movements intact bilaterally. Normal lids and orbits bilaterally. Pupils equal round and reactive to light bilaterally. CN V: Facial sensation is normal. CN VII: Full and symmetric facial movement. CN VIII: Hearing is normal. CN XII: Tongue midline without atrophy or fasciculations. Motor Normal muscle bulk throughout. Normal muscle tone. Right Left Wrist flexion 5 5 Wrist extension 5 5 Right Left Deltoid 5 5 Biceps 5 5 Triceps 5 5 Wrist flexor 5 5 Wrist extensor 5 5 Glutei 5 5 Iliopsoas 5 5 Quadriceps 5 5 Gastrocnemius 5 5 Anterior tibialis 5 5 Posterior tibialis 5 5 Sensory Light touch is normal in upper and lower extremities. Pinprick is normal in upper and lower extremities. Vibration is normal in upper and lower extremities. Reflexes Right Left Brachioradialis 2+ 2+ Biceps 2+ 2+ Patellar 2+ 2+ Achilles 2+ 2+ Right Plantar: downgoing Left Plantar: downgoing Right pathological reflexes: Will's absent. Ankle clonus absent. Left pathological reflexes: Iwll's absent. Ankle clonus absent. Coordination [id number]-[id number], rapid alternating movements and jdqt-wy-[id number] normal bilaterally without dysmetria. Gait Normal casual, toe, heel and tandem gait. Romberg is absent. PROCEDURE: NONE ASSESSMENT AND PLAN: Stephanie Fish is a 78 y.o. female who presents with cognitive difficulty possibly due to a neurodegenerative process such as Alzheimer's disease or vascular dementia. Other considerations would be pseudodementia secondary to depression or an underlying sleep disorder. Brain Mapping (04/09/2024) Delayed N2 latency with reduced neuronal capacity associated with visual processing. Delayed P300 latency seen in patients with memory difficulties. The frontal lobe dysfunction also shows signs of cognitive impairment due to aging. Diagnoses and all orders for this visit: Mild cognitive impairment Mild dementia without behavioral disturbance, psychotic disturbance, mood disturbance, or anxiety, unspecified dementia type (CMS/HCC) Continue with donepezil 5 mg BID. Start thiamine (Vitamin B-1) 100 MG tablet; Take 1 tablet (100 mg) by mouth Daily for brain health. I counseled the patient on the possible side effects and interactions of medications. Follow up 4 months. This note was scribed by ANAND Cm acting under the direction of Noe Jasso MD. The content has been reviewed and confirmed for accuracy by Noe Jasso MD documented in this encounter [facility] 04-09-2024 History of Present illness Narrative Subjective Stephanie Fish is a 78 y.o. female. HPI: Forgetfulness There were no vitals taken for this visit. Allergies Allergen Reactions Prednisolone Statins Cefdinir Procaine Caused heart to race Current Outpatient Medications: amLODIPine (Norvasc) 5 MG tablet, Take 5 mg by mouth in the morning., Disp: , Rfl: calcium citrate (Calcitrate) 950 (200 Ca) MG tablet, Take 950 mg by mouth in the morning., Disp: , Rfl: donepezil (Aricept) 10 MG tablet, Take 1 tablet (10 mg) by mouth at bedtime, Disp: 30 tablet, Rfl: 2 loratadine (Claritin) 10 MG tablet, Take 1 tablet (10 mg) by mouth in the morning., Disp: 90 tablet, Rfl: 3 montelukast (Singulair) 10 MG tablet, TAKE 1 TABLET BY MOUTH AT BEDTIME, Disp: 100 tablet, Rfl: 3 multivitamin (Theragran) tablet, Take 1 tablet by mouth in the morning., Disp: , Rfl: olmesartan-hydroCHLOROthiazide (BENIcar HCT) 40-25 MG tablet, Take 1 tablet by mouth in the morning., Disp: 100 tablet, Rfl: 3 rosuvastatin (Crestor) 10 MG tablet, TAKE 1 TABLET BY MOUTH AT BEDTIME, Disp: 100 tablet, Rfl: 3 thiamine (Vitamin B-1) 100 MG tablet, Take 1 tablet (100 mg) by mouth Daily, Disp: 30 tablet, Rfl: 2 Past Medical History: Diagnosis Date GERD (gastroesophageal reflux disease) Hyperlipemia (CMS/HCC) Hypertension (CMS/HCC) Past Surgical History: Procedure Laterality Date APPENDECTOMY COLONOSCOPY HYSTERECTOMY Family History Problem Relation Name Age of Onset Heart disease Mother reports that she has been smoking cigarettes. She has a 25 pack-year smoking history. She has never used smokeless tobacco. She reports that she does not currently use alcohol. Review of Systems Eyes: Negative for visual disturbance. Cardiovascular: Positive for palpitations. Gastrointestinal: Negative. Musculoskeletal: Negative. Skin: Negative. Psychiatric/Behavioral: The patient is nervous/anxious. Objective Neurological Exam Mental Status Awake, alert and oriented to person, place and time. Oriented to person, place and time. Recent and remote memory are intact. Speech is normal. Language is fluent with no aphasia. Attention and concentration are normal. Assessment/Plan Diagnoses and all orders for this visit: Mild dementia without behavioral disturbance, psychotic disturbance, mood disturbance, or anxiety, unspecified dementia type (CMS/HCC) Visual disturbance Altered awareness, transient Vertigo Palpitations Delayed N2 latency with reduced neuronal capacity associated with visual processing. Delayed P300 latency seen in patients with memory difficulties. The frontal lobe dysfunction also shows signs of cognitive impairment due to aging. documented in this encounter [facility] 03-26-2024 History of Present illness Narrative Images from the original note were not included. CHIEF COMPLAINT REASON FOR VISIT : MCI HPI: Stephanie Fish is a 78 y.o. female who presents for A new patient consultation for memory. She states sometimes she notices some trouble with short-term memory and some times she is fine. She states her notices it. She does take care of her finances and her bills. She does cooking and cleaning. She does manage her own medications. Sometimes she does have some issues getting lost driving. She states if she has not been to a place in a long time then she will have to think about where she is going. She states she does sleep well. But she does have some very vivid dreams at times where they feel real. She states her oldest son does help her when she gets confused. She will call him when she has questions. But she states it is not everyday. No family hx of memory issues. She states she does not work but her does and she is just home all the time. She states she does a lot of word searches which helps with her memory and she does enjoy it. She states she does not usually have any issues with balance but she did have one fall when she just went down and fell on her back. Denies any other concerns. She was given four words to remember after asking 3 questions: (lutheran, apple, table, flag). She did remember 2/4. But did get the other 2 words with a little nudging. CURRENT MEDICATIONS: ALLERGIES/DISCONTINUE MEDICATIONS Current Outpatient Medications Medication Instructions amLODIPine (NORVASC) 5 mg, Every morning calcium citrate (CALCITRATE) 950 mg, Daily donepezil (ARICEPT) 10 mg, Oral, Nightly loratadine (CLARITIN) 10 mg, Oral, Daily montelukast (SINGULAIR) 10 mg, Oral, Nightly multivitamin (Theragran) tablet 1 tablet, Daily olmesartan-hydroCHLOROthiazide (BENIcar HCT) 40-25 MG tablet 1 tablet, Oral, Every morning rosuvastatin (CRESTOR) 10 mg, Oral, Nightly thiamine (VITAMIN B-1) 100 mg, Oral, Daily Allergies Allergen Reactions Prednisolone Statins Cefdinir Procaine Caused heart to race Medications Discontinued During This Encounter Medication Reason donepezil (Aricept) 5 MG tablet Reorder PAST MEDICAL HISTORY: SURGICAL/SOCIAL/FAMILY HISTORY DEPRESSION SCREEN: Past Medical History: Diagnosis Date GERD (gastroesophageal reflux disease) Hyperlipemia (CMS/HCC) Hypertension (CMS/HCC) Past Surgical History: Procedure Laterality Date APPENDECTOMY COLONOSCOPY HYSTERECTOMY Social History Tobacco Use Smoking status: Every Day Current packs/day: 0.50 Average packs/day: 0.5 packs/day for 50.0 years (25.0 ttl pk-yrs) Types: Cigarettes Smokeless tobacco: Never Vaping Use Vaping status: Never Used Substance Use Topics Alcohol use: Not Currently Family History Problem Relation Name Age of Onset Heart disease Mother Depression: Not at risk (12/10/2023) PHQ-2 PHQ-2 Score: 0 REVIEW OF SYMPTOMS: Review of Systems Constitutional: Negative for chills, diaphoresis, fatigue and fever. HENT: Negative for ear pain, tinnitus and trouble swallowing. Eyes: Negative for photophobia and visual disturbance. Respiratory: Negative for cough and shortness of breath. Cardiovascular: Negative for palpitations and leg swelling. Gastrointestinal: Negative for abdominal pain and nausea. Genitourinary: Negative for difficulty urinating and urgency. Musculoskeletal: Negative for arthralgias, back pain, myalgias, neck pain and neck stiffness. Neurological: Negative for tremors, weakness, light-headedness and numbness. Psychiatric/Behavioral: Negative for agitation, confusion and suicidal ideas. OBJECTIVE: 03/26/2024 9:50 AM 01/23/2024 10:48 AM 01/02/2024 11:43 AM Vitals BMI 26.89 kg/m2 26.89 kg/m2 27.62 kg/m2 BSA (m2) 1.71 m2 1.71 m2 1.73 m2 Systolic 130 128 128 Diastolic 82 64 72 Heart Rate 76 81 SpO2 98 % 96 % Height (in) 5' 2 5' 2 5' 2 Weight (lb) 147 147 151 Visit Report Report Report Report EXAM: Neurological Exam Mental Status Awake, alert and oriented to person, place and time. Oriented to person, place and time. Recent and remote memory are intact. Speech is normal. Language is fluent with no aphasia. Attention and concentration are normal. Cranial Nerves CN II: Visual acuity is normal. Visual wynne full to confrontation. CN III, IV, : Extraocular movements intact bilaterally. Normal lids and orbits bilaterally. Pupils equal round and reactive to light bilaterally. CN V: Facial sensation is normal. CN VII: Full and symmetric facial movement. CN VIII: Hearing is normal. CN XII: Tongue midline without atrophy or fasciculations. Motor Normal muscle bulk throughout. Normal muscle tone. Right Left Wrist flexion 5 5 Wrist extension 5 5 Right Left Deltoid 5 5 Biceps 5 5 Triceps 5 5 Wrist flexor 5 5 Wrist extensor 5 5 Glutei 5 5 Iliopsoas 5 5 Quadriceps 5 5 Gastrocnemius 5 5 Anterior tibialis 5 5 Posterior tibialis 5 5 Sensory Light touch is normal in upper and lower extremities. Pinprick is normal in upper and lower extremities. Vibration is normal in upper and lower extremities. Reflexes Right Left Brachioradialis 2+ 2+ Biceps 2+ 2+ Patellar 2+ 2+ Achilles 2+ 2+ Right Plantar: downgoing Left Plantar: downgoing Right pathological reflexes: Will's absent. Ankle clonus absent. Left pathological reflexes: Will's absent. Ankle clonus absent. Coordination Ymfqrd-kc-dflp, rapid alternating movements and dqan-fp-wosf normal bilaterally without dysmetria. Gait Normal casual, toe, heel and tandem gait. Romberg is absent. PROCEDURE: NONE ASSESSMENT AND PLAN: Stephanie Fish is a 78 y.o. female who presents with cognitive difficulty possibly due to a neurodegenerative process such as Alzheimer's disease or vascular dementia. Other considerations would be pseudodementia secondary to depression or an underlying sleep disorder. Diagnoses and all orders for this visit: Mild cognitive impairment Mild dementia without behavioral disturbance, psychotic disturbance, mood disturbance, or anxiety, unspecified dementia type (CMS/HCC) Increase donepezil (Aricept) 10 MG tablet; Take 1 tablet (10 mg) by mouth at bedtime to help with memory. Start thiamine (Vitamin B-1) 100 MG tablet; Take 1 tablet (100 mg) by mouth Daily for brain health. I counseled the patient on the possible side effects and interactions of medications. Brain Mapping- I will order neural scan to identify root cause of memory loss using EEG technology to map brain activity and to detect biomarkers that predict brain functionality in addition measuring other cognitive disorders, sleep disorders, depression and other stress related neurological conditions. I will order vital scan to evaluate for peripheral neuropathy, cardiovascular disease, peripheral artery disease, sudomotor dysfunction, endothelial dysfunction, autonomic dysfunctions including orthostatic hypotension and determining etiology of syncope. Follow up 6-8 weeks. documented in this encounter [facility] 01-23-2024 History of Present illness Narrative Images from the original note were not included. HPI Results Additional comments: LAB RESULTS Last edited by Floresita Bonilla LPN on 01/23/2024 10:48 AM. Subjective Patient ID: Stephanie Fish is a 78 y.o. female who presents for Results (LAB RESULTS) and Dementia. Pt states she feels she has noticed being a little more forgetful States memory has not been a major issue-- not having any issues driving or forgetting family member names Pt started Aricept and feels she has noticed improvement with her memory Labs completed as ordered Held b/p med as directed prior to labs as directed Memory Loss Current Outpatient Medications on File Prior to Visit Medication Sig Dispense Refill calcium citrate (Calcitrate) 950 (200 Ca) MG tablet Take 950 mg by mouth in the morning. loratadine (Claritin) 10 MG tablet Take 1 tablet (10 mg) by mouth in the morning. 90 tablet 3 montelukast (Singulair) 10 MG tablet Take 1 tablet (10 mg) by mouth at bedtime. 90 tablet 3 multivitamin (Theragran) tablet Take 1 tablet by mouth in the morning. olmesartan-hydroCHLOROthiazide (BENIcar HCT) 40-25 MG tablet Take 1 tablet by mouth in the morning. 100 tablet 3 rosuvastatin (Crestor) 10 MG tablet Take 1 tablet (10 mg) by mouth at bedtime. 90 tablet 3 [DISCONTINUED] donepezil (Aricept) 5 MG tablet Take 1 tablet (5 mg) by mouth at bedtime 30 tablet 11 No current facility-administered medications on file prior to visit. I have reviewed and reconciled the history and medication list with the patient today. Allergies Allergen Reactions Prednisolone Statins Cefdinir Procaine Caused heart to race Social History Tobacco Use Smoking status: Every Day Current packs/day: 0.50 Average packs/day: 0.5 packs/day for 50.0 years (25.0 ttl pk-yrs) Types: Cigarettes Smokeless tobacco: Never Vaping Use Vaping status: Never Used Substance Use Topics Alcohol use: Not Currently Family History Problem Relation Name Age of Onset Heart disease Mother Past Medical History: Diagnosis Date GERD (gastroesophageal reflux disease) Hyperlipemia (CMS/HCC) Hypertension (CMS/HCC) Past Surgical History: Procedure Laterality Date APPENDECTOMY COLONOSCOPY HYSTERECTOMY Visit Vitals BP 128/64 Pulse 76 Ht 5' 2 Wt 147 lb SpO2 98% BMI 26.89 kg/m Smoking Status Every Day BSA 1.71 m Review of Systems Objective Physical Exam Constitutional: General: She is not in acute distress. Appearance: Normal appearance. She is well-developed. HENT: Head: Normocephalic and atraumatic. Eyes: General: No scleral icterus. Conjunctiva/sclera: Conjunctivae normal. Cardiovascular: Rate and Rhythm: Normal rate and regular rhythm. Heart sounds: Normal heart sounds. No murmur heard. Pulmonary: Effort: Pulmonary effort is normal. No respiratory distress. Breath sounds: Normal breath sounds. No wheezing, rhonchi or rales. Skin: General: Skin is warm and dry. Neurological: General: No focal deficit present. Mental Status: She is alert and oriented to person, place, and time. Psychiatric: Mood and Affect: Mood normal. Behavior: Behavior normal. Maximum Score Orientation 5 ( 5 ) What is the (year), (season), (date), (day), (month)? 5 ( 5 ) Where are we (state), (county), (town), (hospital), (floor)? Registration 3 ( 3 ) Name 3 Objects: One second to say each. Then ask the patient all 3 after you have said them. Give 1 point for each correct answer. Then repeat them until patient learns all 3. Count trials and record. Attention and Calculation 5 ( 5 ) Serial 7's: One point for each correct. Stop after 5 answers. Alternatively, spell world backwards. Recall 3 ( 1 ) Ask for 3 the 3 objects repeated above. Give 1 point for each correct. Language 2 ( 2 ) Name a pencil and watch (2 points). 1 ( 1 ) Repeat the following: No ifs ands or buts (1 point). 3 ( 2 ) Follow a 3-stage command: Take a paper in your right hand, fold it in half and put it on the floor (3 points). 1 ( 1 ) Read and obey the following: Close your eyes (1 point). 1 ( 1 ) Write a sentence (1 point). 1 ( 1 ) Copy design (1 point). Total Score ( 27/30 ) 25-30: Normal score 20-24: Suggests mild dementia 13-20: Suggests moderate dementia Less than 12: Indicates severe dementia Office Visit on 01/02/2024 Component Date Value Ref Range Status Glucose 01/09/2024 98 65 - 99 mg/dL Final Comment: Fasting reference interval BUN 01/09/2024 11 7 - 25 mg/dL Final Creatinine 01/09/2024 1.17 (H) 0.60 - 1.00 mg/dL Final EGFR 01/09/2024 48 (L) > OR = 60 mL/min/1.73m2 Final BUN/CREATININE RATIO 01/09/2024 9 6 - 22 (calc) Final Sodium 01/09/2024 143 135 - 146 mmol/L Final Potassium, Bld 01/09/2024 3.9 3.5 - 5.3 mmol/L Final Chloride 01/09/2024 106 98 - 110 mmol/L Final Carbon Dioxide 01/09/2024 29 20 - 32 mmol/L Final Calcium 01/09/2024 10.0 8.6 - 10.4 mg/dL Final Office Visit on 12/26/2023 Component Date Value Ref Range Status WHITE BLOOD CELL COUNT 12/26/2023 5.5 3.8 - 10.8 Thousand/uL Final RED BLOOD CELL COUNT 12/26/2023 4.35 3.80 - 5.10 Million/uL Final HEMOGLOBIN 12/26/2023 13.9 11.7 - 15.5 g/dL Final HEMATOCRIT 12/26/2023 42.3 35.0 - 45.0 % Final MCV 12/26/2023 97.2 80.0 - 100.0 fL Final MCH 12/26/2023 32.0 27.0 - 33.0 pg Final MCHC 12/26/2023 32.9 32.0 - 36.0 g/dL Final Comment: For adults, a slight decrease in the calculated MCHC value (in the range of 30 to 32 g/dL) is most likely not clinically significant; however, it should be interpreted with caution in correlation with other red cell parameters and the patient's clinical condition. RDW 12/26/2023 12.6 11.0 - 15.0 % Final PLATELET COUNT 12/26/2023 259 140 - 400 Thousand/uL Final MPV 12/26/2023 9.9 7.5 - 12.5 fL Final ABSOLUTE NEUTROPHILS 12/26/2023 2,409 1,500 - 7,800 cells/uL Final ABSOLUTE LYMPHOCYTES 12/26/2023 2,283 850 - 3,900 cells/uL Final ABSOLUTE MONOCYTES 12/26/2023 600 200 - 950 cells/uL Final ABSOLUTE EOSINOPHILS 12/26/2023 132 15 - 500 cells/uL Final ABSOLUTE BASOPHILS 12/26/2023 77 0 - 200 cells/uL Final NEUTROPHILS 12/26/2023 43.8 % Final LYMPHOCYTES 12/26/2023 41.5 % Final MONOCYTES 12/26/2023 10.9 % Final EOSINOPHILS 12/26/2023 2.4 % Final BASOPHILS 12/26/2023 1.4 % Final Glucose 12/26/2023 105 (H) 65 - 99 mg/dL Final Comment: Fasting reference interval For someone without known diabetes, a glucose value between 100 and 125 mg/dL is consistent with prediabetes and should be confirmed with a follow-up test. BUN 12/26/2023 13 7 - 25 mg/dL Final Creatinine 12/26/2023 1.25 (H) 0.60 - 1.00 mg/dL Final EGFR 12/26/2023 44 (L) > OR = 60 mL/min/1.73m2 Final BUN/CREATININE RATIO 12/26/2023 10 6 - 22 (calc) Final Sodium 12/26/2023 137 135 - 146 mmol/L Final Potassium, Bld 12/26/2023 3.7 3.5 - 5.3 mmol/L Final Chloride 12/26/2023 98 98 - 110 mmol/L Final Carbon Dioxide 12/26/2023 29 20 - 32 mmol/L Final Calcium 12/26/2023 10.0 8.6 - 10.4 mg/dL Final PROTEIN, TOTAL 12/26/2023 7.3 6.1 - 8.1 g/dL Final ALBUMIN 12/26/2023 4.6 3.6 - 5.1 g/dL Final GLOBULIN 12/26/2023 2.7 1.9 - 3.7 g/dL (calc) Final ALBUMIN/GLOBULIN RATIO 12/26/2023 1.7 1.0 - 2.5 (calc) Final BILIRUBIN, TOTAL 12/26/2023 0.5 0.2 - 1.2 mg/dL Final ALKALINE PHOSPHATASE 12/26/2023 66 37 - 153 U/L Final AST 12/26/2023 16 10 - 35 U/L Final ALT 12/26/2023 13 6 - 29 U/L Final TSH W/REFLEX TO FT4 12/26/2023 1.13 0.40 - 4.50 mIU/L Final VITAMIN B12 12/26/2023 496 200 - 1,100 pg/mL Final RPR (MONITOR) W/REFL TITER 12/26/2023 NON-REACTIVE NON-REACTIVE Final Assessment/Plan Diagnoses and all orders for this visit: Primary hypertension (CMS/HCC) - This is a chronic medical condition that is stable since last assessment. No changes in treatment are suggested at this time. Mild dementia without behavioral disturbance, psychotic disturbance, mood disturbance, or anxiety, unspecified dementia type (CMS/HCC) - donepezil (Aricept) 5 MG tablet; Take 1 tablet (5 mg) by mouth at bedtime Abnormal renal function finding - Likely diuretic effect. Improved with holding diuretic. Check BMP next visit. Follow up in about 4 months (around 05/22/2024) for MMSE, Routine F/U. documented in this encounter [facility] 01-02-2024 History of Present illness Narrative Images from the original note were not included. HPI Results Additional comments: labs Last edited by Floresita Bonilla LPN on 01/02/2024 11:43 AM. Subjective Patient ID: Stephanie Fish is a 78 y.o. female who presents for Results (labs). Pt states she feels she has noticed being a little more forgetful States memory has not been a major issue-- not having any issues driving or forgetting family member names Labs completed as ordered Current Outpatient Medications on File Prior to Visit Medication Sig Dispense Refill calcium citrate (Calcitrate) 950 (200 Ca) MG tablet Take 950 mg by mouth in the morning. loratadine (Claritin) 10 MG tablet Take 1 tablet (10 mg) by mouth in the morning. 90 tablet 3 montelukast (Singulair) 10 MG tablet Take 1 tablet (10 mg) by mouth at bedtime. 90 tablet 3 multivitamin (Theragran) tablet Take 1 tablet by mouth in the morning. olmesartan-hydroCHLOROthiazide (BENIcar HCT) 40-25 MG tablet Take 1 tablet by mouth in the morning. 100 tablet 3 rosuvastatin (Crestor) 10 MG tablet Take 1 tablet (10 mg) by mouth at bedtime. 90 tablet 3 No current facility-administered medications on file prior to visit. I have reviewed and reconciled the history and medication list with the patient today. Allergies Allergen Reactions Prednisolone Statins Cefdinir Procaine Caused heart to race Social History Tobacco Use Smoking status: Every Day Current packs/day: 0.50 Average packs/day: 0.5 packs/day for 50.0 years (25.0 ttl pk-yrs) Types: Cigarettes Smokeless tobacco: Never Vaping Use Vaping status: Never Used Substance Use Topics Alcohol use: Not Currently Family History Problem Relation Name Age of Onset Heart disease Mother Past Medical History: Diagnosis Date GERD (gastroesophageal reflux disease) Hyperlipemia (CMS/HCC) Hypertension (CMS/HCC) Past Surgical History: Procedure Laterality Date APPENDECTOMY COLONOSCOPY HYSTERECTOMY Visit Vitals BP 128/72 Pulse 81 Ht 5' 2 Wt 151 lb SpO2 96% BMI 27.62 kg/m Smoking Status Every Day BSA 1.73 m Review of Systems Objective Physical Exam Constitutional: General: She is not in acute distress. Appearance: Normal appearance. She is well-developed. HENT: Head: Normocephalic and atraumatic. Eyes: General: No scleral icterus. Conjunctiva/sclera: Conjunctivae normal. Cardiovascular: Rate and Rhythm: Normal rate and regular rhythm. Heart sounds: Normal heart sounds. No murmur heard. Pulmonary: Effort: Pulmonary effort is normal. No respiratory distress. Breath sounds: Normal breath sounds. No wheezing, rhonchi or rales. Skin: General: Skin is warm and dry. Neurological: General: No focal deficit present. Mental Status: She is alert and oriented to person, place, and time. Psychiatric: Mood and Affect: Mood normal. Behavior: Behavior normal. Office Visit on 12/26/2023 Component Date Value Ref Range Status WHITE BLOOD CELL COUNT 12/26/2023 5.5 3.8 - 10.8 Thousand/uL Final RED BLOOD CELL COUNT 12/26/2023 4.35 3.80 - 5.10 Million/uL Final HEMOGLOBIN 12/26/2023 13.9 11.7 - 15.5 g/dL Final HEMATOCRIT 12/26/2023 42.3 35.0 - 45.0 % Final MCV 12/26/2023 97.2 80.0 - 100.0 fL Final MCH 12/26/2023 32.0 27.0 - 33.0 pg Final MCHC 12/26/2023 32.9 32.0 - 36.0 g/dL Final Comment: For adults, a slight decrease in the calculated MCHC value (in the range of 30 to 32 g/dL) is most likely not clinically significant; however, it should be interpreted with caution in correlation with other red cell parameters and the patient's clinical condition. RDW 12/26/2023 12.6 11.0 - 15.0 % Final PLATELET COUNT 12/26/2023 259 140 - 400 Thousand/uL Final MPV 12/26/2023 9.9 7.5 - 12.5 fL Final ABSOLUTE NEUTROPHILS 12/26/2023 2,409 1,500 - 7,800 cells/uL Final ABSOLUTE LYMPHOCYTES 12/26/2023 2,283 850 - 3,900 cells/uL Final ABSOLUTE MONOCYTES 12/26/2023 600 200 - 950 cells/uL Final ABSOLUTE EOSINOPHILS 12/26/2023 132 15 - 500 cells/uL Final ABSOLUTE BASOPHILS 12/26/2023 77 0 - 200 cells/uL Final NEUTROPHILS 12/26/2023 43.8 % Final LYMPHOCYTES 12/26/2023 41.5 % Final MONOCYTES 12/26/2023 10.9 % Final EOSINOPHILS 12/26/2023 2.4 % Final BASOPHILS 12/26/2023 1.4 % Final Glucose 12/26/2023 105 (H) 65 - 99 mg/dL Final Comment: Fasting reference interval For someone without known diabetes, a glucose value between 100 and 125 mg/dL is consistent with prediabetes and should be confirmed with a follow-up test. BUN 12/26/2023 13 7 - 25 mg/dL Final Creatinine 12/26/2023 1.25 (H) 0.60 - 1.00 mg/dL Final EGFR 12/26/2023 44 (L) > OR = 60 mL/min/1.73m2 Final BUN/CREATININE RATIO 12/26/2023 10 6 - 22 (calc) Final Sodium 12/26/2023 137 135 - 146 mmol/L Final Potassium, Bld 12/26/2023 3.7 3.5 - 5.3 mmol/L Final Chloride 12/26/2023 98 98 - 110 mmol/L Final Carbon Dioxide 12/26/2023 29 20 - 32 mmol/L Final Calcium 12/26/2023 10.0 8.6 - 10.4 mg/dL Final PROTEIN, TOTAL 12/26/2023 7.3 6.1 - 8.1 g/dL Final ALBUMIN 12/26/2023 4.6 3.6 - 5.1 g/dL Final GLOBULIN 12/26/2023 2.7 1.9 - 3.7 g/dL (calc) Final ALBUMIN/GLOBULIN RATIO 12/26/2023 1.7 1.0 - 2.5 (calc) Final BILIRUBIN, TOTAL 12/26/2023 0.5 0.2 - 1.2 mg/dL Final ALKALINE PHOSPHATASE 12/26/2023 66 37 - 153 U/L Final AST 12/26/2023 16 10 - 35 U/L Final ALT 12/26/2023 13 6 - 29 U/L Final TSH W/REFLEX TO FT4 12/26/2023 1.13 0.40 - 4.50 mIU/L Final VITAMIN B12 12/26/2023 496 200 - 1,100 pg/mL Final RPR (MONITOR) W/REFL TITER 12/26/2023 NON-REACTIVE NON-REACTIVE Final Assessment/Plan Diagnoses and all orders for this visit: Mild dementia without behavioral disturbance, psychotic disturbance, mood disturbance, or anxiety, unspecified dementia type (CMS/HCC) - donepezil (Aricept) 5 MG tablet; Take 1 tablet (5 mg) by mouth at bedtime - Labwork did reveal a cause. Mild cognitive impairment - Ambulatory referral to Neurology; Future Abnormal renal function finding - Basic metabolic panel; Future - in 7 days. - Hold Benicar hydrochlorothiazide for 8 days prior. - I suspect this is just diuretic effect. Follow up in about 4 weeks (around 01/30/2024) for F/U med changes, MMSE. documented in this encounter [facility] 12-26-2023 History of Present illness Narrative Images from the original note were not included. HPI issues with memory Additional comments: Scored low on MWV screening here for MMSE Last edited by Floresita Bonilla LPN on 12/26/2023 9:34 AM. Subjective Patient ID: Stephanie Fish is a 78 y.o. female who presents for issues with memory (Scored low on MWV screening here for MMSE). Pt states she feels she has noticed being a little more forgetful States memory has not been a major issue-- not having any issues driving or forgetting family member names Current Outpatient Medications on File Prior to Visit Medication Sig Dispense Refill calcium citrate (Calcitrate) 950 (200 Ca) MG tablet Take 950 mg by mouth in the morning. loratadine (Claritin) 10 MG tablet Take 1 tablet (10 mg) by mouth in the morning. 90 tablet 3 montelukast (Singulair) 10 MG tablet Take 1 tablet (10 mg) by mouth at bedtime. 90 tablet 3 multivitamin (Theragran) tablet Take 1 tablet by mouth in the morning. olmesartan-hydroCHLOROthiazide (BENIcar HCT) 40-25 MG tablet Take 1 tablet by mouth in the morning. 100 tablet 3 rosuvastatin (Crestor) 10 MG tablet Take 1 tablet (10 mg) by mouth at bedtime. 90 tablet 3 No current facility-administered medications on file prior to visit. I have reviewed and reconciled the history and medication list with the patient today. Allergies Allergen Reactions Prednisolone Statins Cefdinir Procaine Caused heart to race Social History Tobacco Use Smoking status: Every Day Current packs/day: 0.50 Average packs/day: 0.5 packs/day for 50.0 years (25.0 ttl pk-yrs) Types: Cigarettes Smokeless tobacco: Never Vaping Use Vaping status: Never Used Substance Use Topics Alcohol use: Not Currently Family History Problem Relation Name Age of Onset Heart disease Mother Past Medical History: Diagnosis Date GERD (gastroesophageal reflux disease) Hyperlipemia (CMS/HCC) Hypertension (CMS/HCC) Past Surgical History: Procedure Laterality Date APPENDECTOMY COLONOSCOPY HYSTERECTOMY Visit Vitals BP 128/68 Pulse 78 Ht 5' 2 Wt 151 lb SpO2 97% BMI 27.62 kg/m Smoking Status Every Day BSA 1.73 m Review of Systems Objective Physical Exam Constitutional: General: She is not in acute distress. Appearance: Normal appearance. She is well-developed. HENT: Head: Normocephalic and atraumatic. Eyes: General: No scleral icterus. Conjunctiva/sclera: Conjunctivae normal. Cardiovascular: Rate and Rhythm: Normal rate and regular rhythm. Heart sounds: Normal heart sounds. No murmur heard. Pulmonary: Effort: Pulmonary effort is normal. No respiratory distress. Breath sounds: Normal breath sounds. No wheezing, rhonchi or rales. Skin: General: Skin is warm and dry. Neurological: General: No focal deficit present. Mental Status: She is alert and oriented to person, place, and time. Psychiatric: Mood and Affect: Mood normal. Behavior: Behavior normal. Maximum Score Orientation 5 ( 3 ) What is the (year), (season), (date), (day), (month)? 5 ( 4 ) Where are we (state), (county), (town), (hospital), (floor)? Registration 3 ( 3 ) Name 3 Objects: One second to say each. Then ask the patient all 3 after you have said them. Give 1 point for each correct answer. Then repeat them until patient learns all 3. Count trials and record. Attention and Calculation 5 ( 3 ) Serial 7's: One point for each correct. Stop after 5 answers. Alternatively, spell world backwards. Recall 3 ( 1 ) Ask for 3 the 3 objects repeated above. Give 1 point for each correct. Language 2 ( 2 ) Name a pencil and watch (2 points). 1 ( 1 ) Repeat the following: No ifs ands or buts (1 point). 3 ( 3 ) Follow a 3-stage command: Take a paper in your right hand, fold it in half and put it on the floor (3 points). 1 ( 1 ) Read and obey the following: Close your eyes (1 point). 1 ( 1 ) Write a sentence (1 point). 1 ( 0 ) Copy design (1 point). Total Score ( 22/30 ) 25-30: Normal score 20-24: Suggests mild dementia 13-20: Suggests moderate dementia Less than 12: Indicates severe dementia Assessment/Plan Diagnoses and all orders for this visit: Mild dementia without behavioral disturbance, psychotic disturbance, mood disturbance, or anxiety, unspecified dementia type ([facility]) - CBC and differential - Comprehensive metabolic panel; Future - TSH W/REFLEX TO FT4; Future - Vitamin B12; Future - RPR; Future Mild cognitive impairment - Unclear etiology. Labs and RTC 1 week. If no cause is seen will refer to Neurology. Follow up in about 1 week (around 01/02/2024) for Test/Lab Review. documented in this encounter [facility] 12-10-2023 History of Present illness Narrative Images from the original note were not included. Subjective : Chief Complaint: Stephanie Fish is an 78 y.o. female here for an annual wellness visit. I have reviewed and reconciled the history and medication list with the patient today. Current Outpatient Medications Medication Sig Dispense Refill calcium citrate (Calcitrate) 950 (200 Ca) MG tablet Take 950 mg by mouth in the morning. loratadine (Claritin) 10 MG tablet Take 1 tablet (10 mg) by mouth in the morning. 90 tablet 3 montelukast (Singulair) 10 MG tablet Take 1 tablet (10 mg) by mouth at bedtime. 90 tablet 3 multivitamin (Theragran) tablet Take 1 tablet by mouth in the morning. olmesartan-hydroCHLOROthiazide (BENIcar HCT) 40-25 MG tablet Take 1 tablet by mouth in the morning. 100 tablet 3 rosuvastatin (Crestor) 10 MG tablet Take 1 tablet (10 mg) by mouth at bedtime. 90 tablet 3 No current facility-administered medications for this visit. Review of Systems Constitutional: Positive for unexpected weight change. Negative for fever. Respiratory: Negative for shortness of breath and wheezing. Cardiovascular: Negative for chest pain, palpitations and leg swelling. Gastrointestinal: Negative for blood in stool. Genitourinary: Negative for hematuria. Neurological: Trouble with memory List of current healthcare providers: Patient Care Team: Dino Abernathy MD as PCP - General (Internal Medicine) Dino Abernathy MD as PCP - [employer] Annual Visit Over the past 2 weeks, how often have you been bothered by any of the following problems? Little interest or pleasure in doing things: Not at all Feeling down, depressed, or hopeless: Not at all Patient Health Questionnaire-2 Score: 0 [place] Fall Risk History of Falling, Immediate or Within 3 Months: No Secondary Diagnosis: No Ambulatory Aid: Walks without aid/bedrest/nurse assist Health Risk Assessment Form Do you need help eating, bathing, using the toilet, dressing, or getting around your home?: No Can you prepare your own meals?: Yes Can you do your own housework without help?: Yes Can you shop for groceries or clothes without help?: Yes Do you exercise for about 20 minutes 3 or more days a week?: Yes How confident are you that you can control and manage most of your health problems?: Very confident Can you mange your money, credit cards and accounts, pay bills and taxes?: Yes Cognitive Screening Three Word Registration: Apple, Watch, Ann Clock Drawing: Partial Clock - 1 Three Word Recall: 1/3 words correct - 1 Total Score (0-5 Points): 2 Pain Assessment Pain Score: 1 Advance Care Planning Do you have a living will?: Yes Do you have a medical power of consumer attorney?: Yes Who is your medical power of consumer attorney?: Objective : BP 132/74 Pulse 77 Ht 5' 2 Wt 150 lb SpO2 98% BMI 27.44 kg/m No results found. Physical Exam Constitutional: General: She is not in acute distress. Appearance: Normal appearance. She is well-developed. HENT: Head: Normocephalic and atraumatic. Eyes: General: No scleral icterus. Conjunctiva/sclera: Conjunctivae normal. Cardiovascular: Rate and Rhythm: Normal rate and regular rhythm. Heart sounds: Normal heart sounds. No murmur heard. Pulmonary: Effort: Pulmonary effort is normal. No respiratory distress. Breath sounds: Normal breath sounds. No wheezing, rhonchi or rales. Skin: General: Skin is warm and dry. Neurological: General: No focal deficit present. Mental Status: She is alert and oriented to person, place, and time. Psychiatric: Mood and Affect: Mood normal. Behavior: Behavior normal. Assessment/Plan : The following health maintenance schedule was reviewed with the patient and provided in printed form in the after visit summary: Health Maintenance Topic Date Due Pneumococcal Vaccine: 65+ Years (2 of 2 - PPSV23 or PCV20) 03/01/2019 Influenza Vaccine Completed Advance Care Planning Patient agreed to discuss advance care planning at today's wellness visit. We discussed that an advance directive is a legal document that only goes into effect if the patient is incapacitated and unable to speak for himself or herself. This would help healthcare providers to ensure that the patient gets the care that he or she wishes to receive. The goal is to provide a patient with the best possible quality of life. Encouraged patient to obtain a living will and durable power of consumer attorney for healthcare. We discussed telling jeffries people about their advance directives such as close family members, and requested a copy to scan into the patient's EHR. An advance directive packet was offered to the patient. Assessment/Plan Orders Placed This Encounter Procedures Influenza, high-dose seasonal, quadrivalent, PF (DPM283) (Fluzone High Dose [place] 0.7mL dose) Follow up in about 2 weeks (around 12/24/2023) for MMSE. Electronically signed by Dino Abernathy MD on December 10, 2023 documented in this encounter [facility] 04-09-2023 History of Present illness Narrative Images from the original note were not included. [facility] [address] [facility] [id number] CONSULT NOTE Stephanie Gerard Herbert 77 y.o. CHIEF COMPLAINT Chief Complaint Patient presents with Cyst SEBACEOUS CYST, MID-BACK. REFERRED BY DR ABERNATHY Stephanie Fish is a 77-year-old female who presents today complaining of a cyst on her right back which has been present for 5 years or more. She states that it is ugly . Her comments on it all the time. She isn't sure if she wants it removed or not. She wants me to look at it. Her primary care physician did not want to remove it because he took off 1 earlier and he did not want to do it. MEDICATION Current Outpatient Medications: calcium citrate (CALCITRATE) 200 mg (950 mg) tablet, Take 950 mg by mouth in the morning., Disp: , Rfl: montelukast (SINGULAIR) 10 mg tablet, Take 1 tablet (10 mg total) by mouth as needed., Disp: , Rfl: olmesartan (BENICAR) 40 mg tablet, Take 1 tablet (40 mg total) by mouth in the morning., Disp: , Rfl: rosuvastatin (CRESTOR) 10 mg tablet, Take 1 tablet (10 mg total) by mouth in the morning., Disp: , Rfl: therapeutic multivitamin (THERAGRAN) tablet, Take 1 tablet by mouth in the morning., Disp: , Rfl: ALLERGY Allergies Allergen Reactions Prednisolone [id number]-Htu Reductase Inhibitors Cefdinir Procaine MEDICAL HISTORY History reviewed. No pertinent past medical history. SURGICAL HISTORY Past Surgical History: Procedure Laterality Date APPENDECTOMY COLONOSCOPY DR RUANO HYSTERECTOMY SOCIAL HISTORY Social History Socioeconomic History Marital status: Spouse name: Not on file Number of children: Not on file Years of education: Not on file Highest education level: Not on file Occupational History Not on file Tobacco Use Smoking status: Every Day Types: Cigarettes Smokeless tobacco: Never Vaping Use Vaping Use: Never used Substance and Sexual Activity Alcohol use: Never Drug use: Not on file Sexual activity: Not on file Other Topics Concern Not on file Social History Narrative Not on file Social Determinants of Health Financial Resource Strain: Not on file Food Insecurity: Not on file Transportation Needs: Not on file Physical Activity: Not on file Stress: Not on file Social Connections: Not on file Interpersonal Safety: Not on file Housing Instability: Not on file FAMILY HISTORY Family History Problem Relation Age of Onset Heart attack Mother Heart attack Father REVIEW OF SYSTEMS: Constitutional: Denies fevers, denies recent illnesses. Rest review of 10 systems negative except as above PHYSICAL EXAM Constitutional: She is oriented to person, place, and time. Vital signs are normal. She appears well-developed and well-nourished. On the right upper back she has a inclusion cyst with a black had approximately 5-8 mm in size non irritated non erythematous Neurological: She is alert and oriented to person, place, and time. Skin: Skin is warm, dry and intact. Psychiatric: She has a normal mood and affect. Her speech is normal and behavior is normal. Cognition and memory are normal. IMPRESSION Inclusion cyst right upper back ASSESSMENT & PLAN Offered excision today in the office but she was not sure if she wanted it removed. I told her to think about it and get back in touch with us and we would involve local anesthetic with cutting. She asked if I had to cut anything and I told her yes I did because I can not take out pathology without cutting . She will call back and schedule a time if she wishes to have removed at a later date. Risks benefits alternatives to surgery could include infection bleeding recurrence or pain. She understood all the above. Evaluation included: Preparing to see the patient (e.g., review of tests) Obtaining and/or reviewing separately obtained history Performing a medically appropriate examination and/or evaluation Counseling and educating the patient/family/caregiver Referring and communicating with other health lawn care professional Inclusion cyst [L72.0] Jossy Sylvester, DO This note was created with the assistance of a speech recognition program. While intending to generate a timely document that accurately reflects the content of the visit, no guarantee can be provided that every grammatical or spelling mistake has been or will be identified or corrected. Thank you for your understanding. documented in this encounter [facility] 11-19-2021 Evaluation note Encounter Date Diagnosis Assessment Notes Nov, Contact with and (suspected) exposure to other viral communicable diseases (ICD-10 - Z20.828) Nov, COVID-19 (ICD-10 - U07.1) Discharge Instructions for COVID-19 (Suspected or Confirmed ) material was printed Drink plenty fluids, get plenty of rest. Take Tylenol or Motrin as needed for aches pains or fevers. Continue your home medications as prescribed. You must quarantine for 5 days after the onset of your symptoms of COVID. Follow-up with your family physician if no improvement in 2 to 3 days [facility] Other 08-29-2022 Evaluation note* Encounter Date Diagnosis Assessment Notes Treatment Notes Treatment Clinical Notes Oct, Contact with and (suspected) exposure to other viral communicable diseases (ICD-10 - Z20.828) How to care for someone with covid-19 material was printed [facility] Other 03-01-2022 Evaluation note* Encounter Date Diagnosis Assessment Notes Treatment Notes Treatment Clinical Notes May, Varicose veins of bilateral lower extremities with other complications (ICD-10 - I83.893) May, Other Venous insufficiency She can discontinue anticoagulation at this time. She does wish to have sclerotherapy for residual secondary varicose veins bilaterally. She will continue in her stocking therapy until that time. [facility] Other 02-14-2022 Evaluation note* Encounter Date Diagnosis Assessment Notes Treatment Notes Treatment Clinical Notes Apr, Acute otitis externa of left ear, unspecified type (ICD-10 - H60.502) Drink plenty fluids, get plenty of rest. Use eardrops as prescribed. Follow-up with your doctor tomorrow as scheduled. Go to the ER for worsening symptoms or concerns [facility] Other 01-25-2022 Evaluation note* Encounter Date Diagnosis Assessment Notes Treatment Notes Treatment Clinical Notes Mar, Varicose veins of left lower extremity with pain (ICD-10 - I83.812) Mar, Other Venous insufficiency status post left leg venous seal closure. Given the findings on ultrasound we will proceed with a short course of prophylactic anticoagulation. I gave her a sample of 15 mg Xarelto and then wrote her a prescription for 1 month worth. I will see her back in a few weeks at which time we will repeat her ultrasound and she knows that should she deteriorate and have any more discomfort or swelling she could return sooner. Goal of treatment is to prevent progression to a deep vein thrombosis given her findings on ultrasound today. She had a question of some renal insufficiency but we got lab work from Dr. Avalos's office which showed a creatinine of 1.0. However on review these are from 2019. I did go and give her the prescription and I will have her get a repeat serum creatinine. She has no history of bleeding. [employer] Other Evaluation noteNo InformationNortUP[facility] Other Evaluation note* Diagnosis Primary hypertension (CMS/HCC)- Primary Unspecified essential hypertension [facility] Diagnosis Mild dementia without behavioral disturbance, psychotic disturbance, mood disturbance, or anxiety, unspecified dementia type (CMS/HCC)- Primary Mild cognitive impairment Mild cognitive impairment, so stated documented [facility]* Diagnosis Mild dementia without behavioral disturbance, psychotic disturbance, mood disturbance, or anxiety, unspecified dementia type (CMS/HCC)- Primary Mild cognitive impairment Mild cognitive impairment, so stated Abnormal renal function finding documented [facility]* Diagnosis Primary hypertension (CMS/HCC)- Primary Unspecified essential hypertension Mild dementia without behavioral disturbance, psychotic disturbance, mood disturbance, or anxiety, unspecified dementia type (CMS/HCC) Abnormal renal function finding documented [facility]* Diagnosis Routine general medical examination at health care facility- Primary Routine general medical examination at a health care facility ACP (advance care planning) Other specified counseling Flu vaccine need Panlobular emphysema (CMS/HCC) Other emphysema Primary hypertension (CMS/HCC) Unspecified essential hypertension Pure hypercholesterolemia (CMS/HCC) Pure hypercholesterolemia documented in this encounter [facility]* Diagnosis Mild cognitive impairment- Primary Mild cognitive impairment, so stated Mild dementia without behavioral disturbance, psychotic disturbance, mood disturbance, or anxiety, unspecified dementia type (CMS/HCC) documented in this encounter [facility] note* Diagnosis Mild dementia without behavioral disturbance, psychotic disturbance, mood disturbance, or anxiety, unspecified dementia type (CMS/HCC) Visual disturbance Unspecified visual disturbance Altered awareness, transient Vertigo Dizziness and giddiness Palpitations documented in this encounter [facility] Healthcare[facility] note* Diagnosis Inclusion cyst- Primary Sebaceous cyst [facility] Diagnosis Mild cognitive impairment- Primary Mild cognitive impairment, so stated Mild dementia without behavioral disturbance, psychotic disturbance, mood disturbance, or anxiety, unspecified dementia type (CMS/HCC) documented in this encounter [facility] HealthcareHistory general [facility]ative - [facility] Other History general Narrative - Reported* Type Description Date Medical History HTN Medical History GERD Medical History Hypercholesterolemia Medical History Hypertriglyceridemia Medical History VV's Medical History Mitral valve prolapse Medical History VV's Surgical History appendectomy Surgical History hysterectomy Surgical History colonoscopy Surgical History EVLT Right LE 08/18/2015 Hospitalization History childbirth [facility] Other History of Present illness Narrative* Dino Abernathy MD - 04/28/2023 3:00 PM EST Subjective Patient ID: Stephanie Fish is a 77 y.o. female who presents for Hypertension. Hypertension Patient is here for follow-up of elevated blood pressure. Blood pressure is not controlled at home.Cardiac symptoms: none. Patient denies chest pain, chest pressure/discomfort, claudication, dyspnea, irregular heart beat, lower extremity edema, near-syncope, orthopnea, palpitations, paroxysmal nocturnal dyspnea, syncope, and tachypnea. Cardiovascular risk factors: advanced age (older than 55 formen, 65 for women) and hypertension,smoker. Hypertension Pertinent negatives include no chest pain, palpitations or shortness of breath. Current Outpatient Medications on File Prior to Visit Medication Sig Dispense Refill calcium citrate (Calcitrate) 950 (200 Ca) MG tablet Take 950 mg by mouth in the morning. loratadine (Claritin) 10 MG tablet Take 1 tablet (10 mg) by mouth in the morning. 90 tablet 3 montelukast (Singulair) 10 MG tablet Take 1 tablet (10 mg) by mouth at bedtime. 90 tablet 3 multivitamin (Theragran) tablet Take 1 tablet by mouth in the morning. rosuvastatin (Crestor) 10 MG tablet Take 1 tablet (10 mg) by mouth at bedtime. 90 tablet 3 [DISCONTINUED] olmesartan (BENIcar) 40 MG tablet Take 1 tablet (40 mg) by mouth in the morning. 90 tablet 3 No current facility-administered medications on file prior to visit. Allergies Allergen Reactions Prednisolone Statins Cefdinir Procaine Social History Tobacco Use Smoking status: Every Day Packs/day: 0.50 Years: 50.00 Additional pack years: 0.00 Total pack years: 25.00 Types: Cigarettes Smokeless tobacco: Never Substance Use Topics Alcohol use: Not Currently Family History Problem Relation Name Age of Onset Heart disease Mother Past Medical History: Diagnosis Date GERD (gastroesophageal reflux disease) Hyperlipemia (CMS/HCC) Hypertension (CMS/HCC) Past Surgical History: Procedure Laterality Date APPENDECTOMY COLONOSCOPY HYSTERECTOMY Visit Vitals BP (!) 168/94 Pulse 79 Ht 5' 2 Wt 165 lb SpO2 97% BMI 30.18 kg/m Smoking Status Every Day BSA 1.81 m Review of Systems Constitutional: Negative for chills, fatigue and fever. Respiratory: Negative for cough, shortness of breath and wheezing. Cardiovascular: Negative for chest pain and palpitations. Gastrointestinal: Negative for abdominal pain, constipation, diarrhea, nausea and vomiting. Skin: Negative for rash. Objective Physical Exam Constitutional: General: She is not in acute distress. Appearance: Normal appearance. She is well-developed. HENT: Head: Normocephalic and atraumatic. Eyes: General: No scleral icterus. Conjunctiva/sclera: Conjunctivae normal. Cardiovascular: Rate and Rhythm: Normal rate and regular rhythm. Heart sounds: Normal heart sounds. No murmur heard. Pulmonary: Effort: Pulmonary effort is normal. No respiratory distress. Breath sounds: Normal breath sounds. No wheezing, rhonchi or rales. Skin: General: Skin is warm and dry. Neurological: General: No focal deficit present. Mental Status: She is alert and oriented to person, place, and time. Psychiatric: Mood and Affect: Mood normal. Behavior: Behavior normal. Assessment/Plan Diagnoses and all orders for this visit: Primary hypertension (CMS/HCC) - olmesartan-hydroCHLOROthiazide (Benicar HCT) 40-25 MG tablet; Take 1 tablet by mouth in the morning, was previously on Benicar 40. BP has been running high. RTC 2 weeks. Follow up in about 2 weeks (around 05/12/2023) for F/U med changes. documented in this encounterNOMD HealthcareInstructionsNot on filedocumented in this encounterC[facility] SystemReason for visit Narrative* Consultation (Routine) - Closed Specialty Diagnoses / Procedures Referred By Contac t Referred To Contact Neurology Diagnoses Mild cognitive impairment Procedures [place] OFFICE/OUTPATIENT NEW HIGH MDM 60 MINUTES Dino Abernathy MD [address] [facility] [address] [place] [address] Phone: tel: fax: Noe Jasso MD [address] [place] [address] Phone: tel: fax: Referral ID Status Reason Start Date Expiration Date V isits Requested Visits Authorized [id number] Closed Specialty Services Required 01/02/2024 06/30/2024 1 1 [facility] Summary Purpose Family History No Family History Records FoundNo Family History Records FoundNo Family History Records FoundNo Family History Records FoundNo Family History Records Found Advance Directives No Advanced Directives Records FoundNo Advanced Directives Records FoundNo Advanced Directives Records FoundNo Advanced Directives Records FoundNo Advanced Directives Records Found Additional Source Comments INFORMATION SOURCE (unrecogn ized section and content) DATE CREATED AUTHOR 06/04/2021 [facility] DATE CREATED AUTHOR AUTHOR'S ORGANIZ ATION 03/15/2022 [facility] DATE CREATED AUTHOR AUTHOR'S ORGANIZ ATION 04/12/2023 [facility] DATE CREATED AUTHOR AUTHOR'S ORGANIZ ATION 01/11/2024 [facility] DATE CREATED AUTHOR AUTHOR'S ORGANIZ ATION 05/15/2024 [facility] EPIC REASON FOR VISIT (unrecogniz ed section and content) Reason Comments Hypertension Reason Comments issues with memory Scored low on MWV sc reening here for MMSE Reason Comments Results labs Reason Comments Results LAB RESULTS Dementia Reason Comments Medicare Annual Wellness Visit Subsequen t Reason Comments Brain Map Reason Comments Cyst SEBACEOUS CYST, MID- BACK. REFERRED BY DR ABERNATHY Care Teams (unrecognized sec tion and content) Skiff Operator Relationship Specialty Start Date End Date Dino Abernathy MD [address] [facility] [address] [place] [address] PCP - Devoted 11/15/22 Dino Abernathy MD [address] [facility] [address] [place] [address] PCP - General Internal Medicine 12/09/22 Skiff Operator Relationship Specialty Start Date End Date Dino Abernathy MD [address] [facility] [address] [place] [address] PCP - Devoted 11/15/22 Dino Abernathy MD [address] [facility] [address] [place] [address] PCP - General Internal Medicine 12/09/22 Skiff Operator Relationship Specialty Start Date End Date Dino Abernathy MD [address] [facility] [address] [place] [address] PCP - Devoted 11/15/22 Dino Abernathy MD [address] [facility] [address] [place] [address] PCP - General Internal Medicine 12/09/22 Skiff Operator Relationship Specialty Start Date End Date Dino Abernathy MD [address] [facility] [address] [place] [address] PCP - Devoted 11/15/22 Dino Abernathy MD [address] [facility] [address] [place] [address] PCP - General Internal Medicine 12/09/22 Skiff Operator Relationship Specialty Start Date End Date Dino Abernathy MD [address] [facility] [address] [place] [address] PCP - Devoted 11/15/22 Dino Abernathy MD [address] [facility] [address] [place] [address] PCP - General Internal Medicine 12/09/22 Skiff Operator Relationship Specialty Start Date End Date Dino Abernathy MD [address] [place] [address] PCP - Devoted 11/15/22 Dino Abernathy MD [address] [place] [address] PCP - General Internal Medicine 12/09/22 Skiff Operator Relationship Specialty Start Date End Date Dino Abernathy MD [address] [facility] [address] [place] [address] PCP - Devoted 11/15/22 Dino Abernathy MD [address] [facility] [address] [place] [address] PCP - General Internal Medicine 12/09/22 Skiff Operator Relationship Specialty Start Date End Date Dino Abernathy MD [address] [place] [address] PCP - Devoted 11/15/22 Dino Abernathy MD [address] [facility] [address] [place] [address] PCP - General Internal Medicine 12/09/22 Skiff Operator Relationship Specialty Start Date End Date Dino Abernathy MD [address] [place] [address] PCP - Devoted 11/15/22 Dino Abernathy MD [address] [facility] [address] [place] [address] PCP - General Internal Medicine 12/09/22 Skiff Operator Relationship Specialty Start Date End Date Dino Abernathy MD [address] [place] [address] PCP - Devoted 11/15/22 Dino Abernathy MD [address] [place] [address] PCP - General Internal Medicine 12/09/22 Skiff Operator Relationship Specialty Start Date End Date Dino Abernathy MD [address] [place] [address] PCP - Devoted 11/15/22 Dino Abernathy MD [address] [place] [address] PCP - General Internal Medicine 12/09/22 Skiff Operator Relationship Specialty Start Date End Date Dino Abernathy MD [address] [place] [address] PCP - Devoted 11/15/22 Dino Abernathy MD [address] [place] [address] PCP - General Internal Medicine 12/09/22 Skiff Operator Relationship Specialty Start Date End Date Dino Abernathy MD [address] [place] [address] PCP - General Internal Medicine 03/20/23 Skiff Operator Relationship Specialty Start Date End Date Dino Abernathy MD [address] [place] [address] PCP - Devoted 11/15/22 Dino Abernathy MD [address] [facility] [address] [place] [address] PCP - General Internal Medicine 12/09/22 FOR RECORDS PERTAINING TO PATIENTS WHO ARE OR HAVE BEEN ENROLLED IN A CHEMICAL DEPENDENCY/SUBSTANCEABUSE PROGRAM, SOME INFORMATION MAY BE OMITTED. This clinical summary was aggregated from multiple sources. Caution should be exercised in using it in the provision of clinical care. This summary normalizes information from multiple sources, and as a consequence, information in this document may materially change the coding, format and clinical context of patient data. In addition, data may be omitted in some cases. CLINICAL DECISIONS SHOULD BE BASED ON THE PRIMARY CLINICAL RECORDS. [employer] provides no warranty or guarantee of the accuracy or completeness of information in this document.
[2024-05-24 11:38] LABS: Alanine Aminotransferase 20 U/L (14-59); Albumin Globulin Ratio 1.2; Albumin Level 3.9 g/dL (3.4-5.0); Alkaline Phosphatase 73 U/L (46-116); Anion Gap 14.5; Aspartate Amino Transferase 18 U/L (15-37); BUN Creatinine Ratio 12.4; Bilirubin Total 0.4 mg/dL (0.2-1.0); Calcium 9.9 mg/dL (8.5-10.1); Carbon Dioxide 29.6 mmol/L (21.0-32.0); Chloride 102 mmol/L (98-107); Chol HDL Ratio 2.7; Cholesterol 149 mg/dL (<=200); Estimated GFR (African America 45 (>=60 mL/min/1.73m^2); Estimated GFR (Non-African Ame 37 (>=60 mL/min/1.73m^2); Globulin 3.2 g/dL; Glucose 95 mg/dL (74-106); HDL Cholesterol 56 mg/dL (40-60); LDL Cholesterol Calculated 73.6 mg/dL; Potassium 4.1 mmol/L (3.5-5.1); Sodium 142 mmol/L (136-145); Total Protein 7.1 g/dL (6.4-8.2); Triglycerides 97 mg/dL (<=150); VLDL CHOLESTEROL 19.4 mg/dL
== END 2024-05-24 10:39 | disposition home or self-care (01) ==
PROVIDERS: PCP Internal Medicine; Visit Provider Internal Medicine
DX: E78.00 Pure hypercholesterolemia, unspecified (principal); N18.31 Chronic kidney disease, stage 3a
CPT/HCPCS: 36415; 80053; 80061

== ENCOUNTER 2024-10-13 08:38 | Outpatient (OUT) | payer MEDICARE, SELFPAY ==
--- NOTE | 2024-10-13 08:47 | MM_ITS ---
Patient Name: KATRINA FISH MR#: [id number] : 1945 Exam Date: 10/13/2024 Ordering Doctor: DR ROCIO HUGGINS M.D. RADIOLOGY REPORT PROCEDURE: MM TOMOSYNTHESIS SCREENING BI COMPARISON: MG MAMM SCREEN 3D NAE CAD, 03/14/2022. MG MAMM SCREEN 3D NAE CAD, 03/13/2021. MG MAMM SCREEN NAE W CAD, 03/07/2020. MG MAMM NAE SCRN W CAD DIG, 08/14/2012. INDICATIONS: Screening for malignancy Calculator Name [facility] Breast Cancer Risk Assessment Tool 5 Year Breast Cancer Risk 1.50% Lifetime Breast Cancer Risk 2.50% Personal Breast Cancer No Personal Ovarian Cancer No Treatments None Family Cancers Mother with colon cancer at age 35. LOCATION: [facility] BREAST COMPOSITION: The breasts are heterogeneously dense, which may obscure small masses. FINDINGS: DIAGNOSTIC CATEGORY 1--NEGATIVE. RIGHT BREAST: No significant suspicious finding. LEFT BREAST: No significant suspicious finding. RECOMMENDATIONS: ROUTINE MAMMOGRAM AND CLINICAL EVALUATION IN 12 MONTHS. PLEASE NOTE: A NORMAL MAMMOGRAM DOES NOT EXCLUDE THE POSSIBILITY OF BREAST CANCER. A CLINICALLY SUSPICIOUS PALPABLE LUMP SHOULD BE BIOPSIED. Dictated by: Juan Jose Ramsey DO on 10/13/2024 at 16:27 Approved by: Juan Jose Ramsey DO on 10/13/2024 at 16:28
== END 2024-10-13 08:39 | disposition home or self-care (01) ==
LOC: MAMMO 08:40
PROVIDERS: PCP Internal Medicine; Visit Provider Internal Medicine
DX: Z12.31 Encounter for screening mammogram for malignant neoplasm of breast (principal); Z80.0 Family history of malignant neoplasm of digestive organs
CPT/HCPCS: 77063; 77067